=== PATIENT | male | born 1955 | race African-American/Black ===

== ENCOUNTER 2016-06-03 10:49 | Day surgery (SDC) | payer BC ==
[2016-05-31 18:10] VITALS: BMI 25.2
[2016-06-03] VITALS (14 sets, daily range): BP systolic 104–135; BP diastolic 66–77; PULSE 58–80; RESP 12–18; Ht 180.3 cm; Wt 88.0 kg
[~2016-06-03] VITALS: Ht 180.3 cm; Wt 88.0 kg
[~2016-06-03 10:49] MED LIST: CEFAZOLIN 1 GM INJ ONE; ROCURONIUM 50 MG INJ ONE
[2016-06-03] MEDS ORDERED: SOD CHLORIDE 0.9% 1,000 ML IV ONE (11:00)
[2016-06-03] MEDS ORDERED: CEFAZOLIN 1 GM/50 ML (PMX) 50 ML IVPB ONE (11:00)
[2016-06-03] MEDS ORDERED: DOXY50TA5 PO (11:20)
[2016-06-03] MEDS ORDERED: POTA8TAB2 PO (11:29)
[2016-06-03] MEDS ORDERED: POLYMYXIN/BACITRACIN 1L IRRIG ONE (11:50)
[2016-06-03] MEDS ORDERED: BUPIVACAINE 0.25% (MPF) 30 ML INJ ONE (11:50)
[2016-06-03] MEDS ORDERED: PROPOFOL 20 ML ONE (12:11)
[2016-06-03] MEDS ORDERED: METOCLOPRAMIDE 10 MG INJ ONE (12:12)
[2016-06-03] MEDS ORDERED: MIDAZOLAM 1 MG/ML 2 ML INJ ONE (12:12)
[2016-06-03] MEDS ORDERED: ROPIVACAINE 0.5 % 30 ML VIAL ONE (12:28)
[2016-06-03] MEDS ORDERED: FENTAnyl 50 MCG/ML VIAL ONE (12:49)
[2016-06-03] MEDS ORDERED: KETOROLAC 30 MG INJ ONE (13:06)
[2016-06-03] MEDS ORDERED: GLYCOPYRROLATE 0.4 MG INJ ONE (13:06)
[2016-06-03] MEDS ORDERED: NEOSTIGMINE 3 MG/3 ML SYRINGE ONE (13:06)
[2016-06-03] MEDS ORDERED: DIPHENHYDRAMINE 50 MG INJ IV PRN (13:30)
[2016-06-03] MEDS ORDERED: MEPERIDINE 25 MG INJ IV PRN (13:30)
[2016-06-03] MEDS ORDERED: OXYCODONE/ACETAMINOPHEN (5/325) TAB PO PRN ×2 (13:30)
[2016-06-03] MEDS ORDERED: ONDANSETRON 4 MG INJ IV PRN (13:30)
[2016-06-03] MEDS ORDERED: HYDROmorphONE (0.2 MG/ML) 10ML SYG IV PRN ×3 (13:30)
[2016-06-03] MEDS ORDERED: HYDROCODONE/APAP (5/325) TAB PO ONE (13:30)
[2016-06-03] MEDS ORDERED: METOCLOPRAMIDE 10 MG INJ IV PRN (13:30)
--- NOTE | 2016-06-03 14:05 | OPR ---
DATE OF OPERATION: 06/03/2016 INDICATION: This is a 60-year-old male with a right inguinal hernia. He requests surgical repair. Risks, alternatives, benefits, and personnel were discussed with the patient. Patient expressed un derstanding and consents to the operation. PREOPERATIVE DIAGNOSIS: Right inguinal hernia. POSTOPERATIVE DIAGNOSIS: Right inguinal hernia. OPERATION: Open right inguinal hernia repair with large size Ultrapro hernia system mesh. SURGEON: Rafat Sweet MD SPECIMENS: None. COMPLICATIONS: None. ANESTHESIA: General. DESCRIPTION OF PROCEDURE: The patient was taken to the OR and prepped and draped in the usual steri le fashion. Surgical timeout was performed. IV antibiotics were given. Right inguinal oblique inc ision was made with a 10 blade. Dissection cautery was carried down to external oblique fascia whic h was opened with a 15 blade. This incision is extended medial inferiorly and lateral superiorly wi th Metzenbaum scissors. Cord structures were identified and encircled with a Keisha drain. Disk p ortion of UltraPro hernia system mesh is secured in place with a running 0 Prolene from the pubic tu bercle along the shelving edge of the inguinal ligament and superiorly to the internal oblique with interrupted 3-0 Vicryl. Onlay mesh was secured in a similar fashion with a running 0 Prolene from t he pubic tubercle along the shelving edge of the inguinal ligament. Straps are created and reapprox imated with interrupted 0 Prolene to recreate the inguinal ring. Onlay mesh was secured to the inte rnal oblique with interrupted 3-0 Vicryl. External oblique was closed with a running 3-0 Vicryl. S carpa's is closed with interrupted 3-0 Vicryl. Skin was closed using skin ricky. Local anesthesi a was injected. Dry dressings were applied. Dictated By: RAFAT SWEET MD SB/JENNY Conf#: [id number] DID#: [id number]
== END 2016-06-03 15:35 | disposition home or self-care (01) ==
LOC: SDS 10:49
PROVIDERS: ATTEND Surgery
DX: K40.90 Unilateral inguinal hernia, without obstruction or gangrene, not specified as recurrent (principal)
CPT/HCPCS: 49505; C1781; J0690; J1885; J2175; J2250; J2405; J2710; J2765; J2795; J3010; Z7512; Z7610; J1170

== ENCOUNTER 2016-06-29 10:21 | Emergency (ER) | payer BC ==
[~2016-06-29] VITALS: Wt 88.5 kg
[~2016-06-29 10:21] MED LIST changes: -CEFAZOLIN 1 GM INJ ONE; +DOXY50TA5 PO; +POTA8TAB2 PO; -ROCURONIUM 50 MG INJ ONE
[2016-06-29 12:01] LABS: ADD SCAN DIFF NO
[2016-06-29 12:10] LABS: ALBUMIN 3.9 g/dl (3.3-4.9); CHLORIDE 100 mmol/L (97-110); POTASSIUM 3.9 mmol/L (3.5-5.1); SODIUM 141 mmol/L (135-144)
[2016-06-29 12:12] LABS: CREATININE 1.03 mg/dl (0.61-1.24)
[2016-06-29 12:13] LABS: ALANINE AMINOTRANSFERASE 28 IU/L (13-69); ALBUMIN/GLOBULIN RATIO 0.88; ALKALINE PHOSPHATASE 143 IU/L (42-121); ANION GAP 16 (8-16); ASPARTATE AMINO TRANSFERASE 29 IU/L (15-46); BILIRUBIN,INDIRECT 0.7 mg/dl (0-1.1); BILIRUBIN,TOTAL 0.7 mg/dl (0.2-1.3); BLOOD UREA NITROGEN 11 mg/dl (7-20); CARBON DIOXIDE 29 mmol/L (21-31); GLUCOSE 103 mg/dl (70-220); TOTAL PROTEIN 8.3 g/dl (6.1-8.1)
[2016-06-29 12:15] LABS: BASOPHILS % 0.3 % (0.0-2.0); EOSINOPHILS # 0.2 10^3/ul (0.0-0.5); EOSINOPHILS % 2.6 % (0.0-7.0); HEMATOCRIT 37.5 % (42.0-52.0); HEMOGLOBIN 12.1 g/dl (14.0-18.0); LYMPHOCYTES # 1.2 10^3/ul (0.8-2.9); LYMPHOCYTES % 16.7 % (15.0-51.0); MEAN CORPUSCULAR HEMOGLOBIN 27.7 pg (29.0-33.0); MEAN CORPUSCULAR HGB CONC 32.3 g/dl (32.0-37.0); MEAN CORPUSCULAR VOLUME 85.8 fl (82.0-101.0); MEAN PLATELET VOLUME 9.2 fl (7.4-10.4); MONOCYTE # 0.9 10^3/ul (0.3-0.9); MONOCYTES % 12.6 % (0.0-11.0); NEUTROPHIL # 4.9 10^3/ul (1.6-7.5); PLATELET COUNT 173 10^3/UL (140-415); RED BLOOD COUNT 4.37 10^6/ul (4.70-6.10); RED CELL DISTRIBUTION WIDTH 16.2 % (11.5-14.5); WHITE BLOOD COUNT 7.2 10^3/ul (4.8-10.8)
[2016-06-29 12:22] LABS: B-TYPE NATRIURETIC PEPTIDE 57 PG/ML (0-125)
[2016-06-29 12:28] LABS: TROPONIN-I < 0.012 ng/ml (0.00-0.12)
[2016-06-29 12:29] LABS: INR 1.01; PROTIME 13.3 Sec (12.2-14.2)
[2016-06-29 12:30] LABS: PARTIAL THROMBOPLASTIN TIME 28.4 Sec (25.0-35.0)
--- NOTE | 2016-06-29 12:54 | RADRPT ---
PROCEDURE: XR Chest. CLINICAL INDICATION: Chest pain TECHNIQUE: Chest AP portable. COMPARISON: No comparison available. FINDINGS: The mediastinal structures are unremarkable. The heart is normal in size and configuration. The pu lmonary vascularity is normal. The lung carrillo are unremarkable. No consolidation is identified. The pleural spaces are unremarkable. The axial skeleton is unremarkable. IMPRESSION: No active intrathoracic disease. RPTAT: HGDB .Patrick Ferris MD, MD Date Time Electronically viewed and signed by .Patrick Ferris MD, MD on 06/29/2016 12:53 .B/
--- NOTE | 2016-06-29 13:29 | RADRPT ---
PROCEDURE: Ultrasound of the bilateral lower extremity venous system. CLINICAL INDICATION: Bilateral leg pain and swelling, deep venous thrombosis TECHNIQUE: Austin scale with and without compression, color doppler, spectral doppler of the venous system of the bilateral lower extremities was performed. Venous augmentation maneuvers were utilized . COMPARISON: No prior studies are available for comparison. FINDINGS: RIGHT: Common femoral vein: Patent. Femoral vein: Patent. Popliteal vein: Patent. Calf veins: Patent. No soft tissue abnormalities are identified. LEFT: Common femoral vein: Patent. Femoral vein: Patent. Popliteal vein: Patent. Calf veins: Patent. No soft tissue abnormalities are identified. IMPRESSION: No evidence of a deep vein thrombosis within the bilateral lower extremities. RPTAT: AADD .Eliezer Whiteside MD, MD Date Time Electronically viewed and signed by .Eliezer Whiteside MD, on 06/29/2016 13:29 .B/
--- NOTE | 2016-06-29 13:51 | ERD ---
ER Documentation Chief Complaint Date/Time DATE: 06/29/16 Chief Complaint Bilateral leg swelling HPI The patient is a 60-year-old male with a history of venous insufficiency to the lower extremities who presents to the Emergency Department with complaint of worsening lower extremity edema for the past 2-3 days. The patient reports that he has baseline lower extremity edema, however, over the past several days , he has noted increased swelling to both lower extremities. He has tried to elevate the legs, though does not note significant change in symptoms. He denies any redness, warmth, tenderness or pain. Denies numbness, paresthesias or weakness. Denies recent chest pain, palpitations, shortness of breath, weakness, fevers, sweats, chills, nausea or vomiting. Denies weight gain. Denies any swelling to the eyes, testes or other body regions. Denies orthopnea , paroxysmal nocturnal dyspnea, dark urine, hematuria, puffy eyelids, anorexia, jaundice, palmar erythema, ascites. Denies any nonpitting pretibial edema, fatigue, cold intolerance, constipation. Denies recent history of trauma or falls. The patient does note that on 06/03/2016 he underwent right inguinal hernia repair. No other recent surgeries. He denies calf swelling/tenderness. The patient also reports that several years ago he had similar worsening of his baseline edema, and was evaluated at [facility] ED with no acute findings identified. ROS All systems reviewed and are negative except as per history of present illness. Medications Home Meds Reported Medications Potassium Chloride* (Klor-Con*) 8 Meq Tablet.sa, 8 MEQ PO DAILY, TAB 06/03/16 Doxycycline Monohydrate* (Doxycycline Monohydrate*) 50 Mg Tablet, 50 MG PO BID, TAB 06/03/16 Allergies Allergies: Coded Allergies: No Known Allergy (Unverified , 06/29/16) PMhx/Soc History of Surgery: Yes (hernia surgery) Anesthesia Reaction: No Hx Neurological Disorder: No Hx Respiratory Disorders: No Hx Cardiac Disorders: No Hx Psychiatric Problems: No Hx Miscellaneous Medical Probl: No Hx Alcohol Use: Yes (SOCIALLY) Hx Substance Use: Yes (SOCIALLY) Hx Tobacco Use: Yes Smoking Status: Current every day smoker Physical Exam Vitals Vital Signs Date Time Temp Pulse Resp B/P Pulse Ox O2 Delivery O2 Flow Rate FiO2 06/29/16 14:01 98.5 73 16 137/84 99 Room Air 06/29/16 10:26 98.1 92 18 140/72 99 Physical Exam GENERAL: Well-developed, well-nourished, in no acute distress HEENT: Head is normocephalic, atraumatic. No scleral pallor or icterus. Pupils equal, round and reactive to light. Extraocular movements intact. Conjunctiva pink. No periorbital swelling. Moist mucous membranes. No lip or tongue swelling. NECK: Supple. Full range of motion. No JVD. RESPIRATORY: Lungs are clear to auscultation bilaterally. No rales, rhonchi or wheezing. Equal breath sounds. Normal expiratory effort. CARDIOVASCULAR: Regular rate and rhythm. S1 and S2 normal. No S3. No murmurs, rubs, or gallops. GASTROINTESTINAL: Abdomen is soft, nontender, and nondistended. No shifting dullness. EXTREMITIES: No clubbing or cyanosis. 1-2+ edema of the lower extremities, with increased varicosities and hemosiderin deposits. No focal erythema. No warmth. No lymphatic streaking. No dependent rubor. No calf swelling or calf tenderness. Compartments are soft. Normal range of motion. Distal neurovascular status intact. Distal pulses are palpable, 2+ bilaterally. Capillary refill is less than 2 seconds. NEUROLOGIC: The patient is alert, awake, and oriented x 3. No focal neurologic deficits. INTEGUMENT: See Extremities Exam. No urticaria. PSYCHIATRIC: Appropriate; Cooperative. Result Diagram: 06/29/16 1142 06/29/16 1142 Results 24 hrs Laboratory Tests Test 06/29/16 11:42 White Blood Count 7.210^3/ul Red Blood Count 4.3710^6/ul Hemoglobin 12.1g/dl Hematocrit 37.5% Mean Corpuscular Volume 85.8fl Mean Corpuscular Hemoglobin 27.7pg Mean Corpuscular Hemoglobin Concent 32.3g/dl Red Cell Distribution Width 16.2% Platelet Count 53015^3/UL Mean Platelet Volume 9.2fl Neutrophils % 67.0% Lymphocytes % 16.7% Monocytes % 12.6% Eosinophils % 2.6% Basophils % 0.3% Nucleated Red Blood Cells % 0.0/100WBC Neutrophils # 4.910^3/ul Lymphocytes # 1.210^3/ul Monocytes # 0.910^3/ul Eosinophils # 0.210^3/ul Basophils # 0.010^3/ul Nucleated Red Blood Cells # 0.010^3/ul Prothrombin Time 13.3Sec Prothrombin Time Ratio 1.0 INR International Normalized Ratio 1.01 Activated Partial Thromboplast Time 28.4Sec Sodium Level 141mmol/L Potassium Level 3.9mmol/L Chloride Level 100mmol/L Carbon Dioxide Level 29mmol/L Anion Gap 16 Blood Urea Nitrogen 11mg/dl Creatinine 1.03mg/dl Glucose Level 103mg/dl Calcium Level 9.0mg/dl Total Bilirubin 0.7mg/dl Direct Bilirubin 0.00mg/dl Indirect Bilirubin 0.7mg/dl Aspartate Amino Transf (AST/SGOT) 29IU/L Alanine Aminotransferase (ALT/SGPT) 28IU/L Alkaline Phosphatase 143IU/L Troponin I < 0.012ng/ml B-Type Natriuretic Peptide 57PG/ML Total Protein 8.3g/dl Albumin 3.9g/dl Globulin 4.40g/dl Albumin/Globulin Ratio 0.88 Procedures/MDM DIAGNOSTIC TESTS AND INTERPRETATION: PROCEDURE: XR Chest. TECHNIQUE: Chest AP portable. COMPARISON: No comparison available. FINDINGS:The mediastinal structures are unremarkable. The heart is normal in size and configuration. The pulmonary vascularity is normal. The lung carrillo are unremarkable. No consolidation is identified. The pleural spaces are unremarkable. The axial skeleton is unremarkable. IMPRESSION: No active intrathoracic disease. .Patrick Ferris MD, MD Date Time Electronically viewed and signed by .Patrick Ferris MD, MD on 06/29/2016 12:53 PROCEDURE: Ultrasound of the bilateral lower extremity venous system. CLINICAL INDICATION: Bilateral leg pain and swelling, deep venous thrombosis TECHNIQUE: Austin scale with and without compression, color doppler, spectral doppler of the venous system of the bilateral lower extremities was performed. Venous augmentation maneuvers were utilized. COMPARISON: No prior studies are available for comparison. FINDINGS: RIGHT: Common femoral vein: Patent. Femoral vein: Patent. Popliteal vein: Patent. Calf veins: Patent. No soft tissue abnormalities are identified. LEFT: Common femoral vein: Patent. Femoral vein: Patent. Popliteal vein: Patent. Calf veins: Patent. No soft tissue abnormalities are identified. IMPRESSION:No evidence of a deep vein thrombosis within the bilateral lower extremities. .Eliezer Whiteside MD, Date Time Electronically viewed and signed by .Eliezer Whiteside MD, on 06/29/2016 13:29 EKG Reviewed and interpreted by: Dr. Kelly EKG Interpretation: Normal sinus rhythm with sinus arrhythmia. Rate [address]-segment elevations. No LBBB. No ectopy. MEDICAL DECISION MAKING: The patient is a 60-year-old male presenting to the emergency department with complaint of worsening lower extremity swelling for the past several days. Denies any associated pain, redness or restricted range of motion. On physical examination the patient had 1-2+ edema of the lower extremities, with some increased varicosities. Otherwise, no focal erythema or lymphatic streaking. No dependent rubor. Some hemosiderin deposits noted. No calf swelling or tenderness. Compartments are soft. Distal extremities are neurovascularly intact. Differential diagnosis includes, but is not limited to, cellulitis, lymphedema, obesity, venous insufficiency, trauma, hepatic insufficiency/cirrhosis, renal dysfunction/nephrotic syndrome/renal failure, myxedema, cardiac dysfunction/CHF/ cor pulmonale/cardiomyopathy, anasarca, deep vein thrombosis. No evidence of DVT on doppler ultrasound performed. Laboratory analysis revealed no leukocytosis. No erythema, warmth or lymphatic streaking noted to patient's lower extremities. No recent fevers, chills or constitutional symptoms, no evidence of cellulitis. BUN and creatinine are normal, no prerenal azotemia or acute kidney injury. No transaminitis, no elevation of AST /ALT, no clinical findings to suggest cirrhosis. Presentation not consistent with myxedema. BNP within normal limits. Troponin < 0.012. No acute findings on chest x-ray. Do not suspect cardiac etiology. No evidence of acute injury or traumatic process. No clinical findings to suggest septic joint, neurovascular compromise or emergent traumatic injury. At this time the patient is in stable condition with stable vital signs and therefore can be discharged home with strict return precautions for signs of deteriorating or worsening condition. The patient is advised to follow up with his primary care provider within 1-2 days for reevaluation and further management, or return to the ER sooner for any worsening symptoms. I shared my medical decision making and plan with the patient at length and in great detail , and the patient verbally understands and agrees with the plan for further observation and care as an outpatient. At the time of discharge, all questions were answered. Departure Diagnosis: Primary Impression: Lower extremity edema Laterality: bilateral Qualified Code: R60.0 - Bilateral edema of lower extremity Condition: Stable Patient Instructions: Peripheral Edema, Bilateral Additional Instructions: Call your primary care doctor TOMORROW for an appointment during the next 1-2 days.See the doctor sooner or return here if your condition worsens before your appointment time. GABI CABRAL PA-C Jun 29, 2016 13:51
[2016-06-29 14:01] VITALS: BP 137/84; PULSE 73; RESP 16; TEMP 98.5
== END 2016-06-29 14:03 | disposition home or self-care (01) ==
LOC: FTE 10:21
DX: R60.0 Localized edema (principal); F17.210 Nicotine dependence, cigarettes, uncomplicated; I82.403 Acute embolism and thrombosis of unspecified deep veins of lower extremity, bilateral
CPT/HCPCS: 36415; 71010; 80053; 83880; 84484; 85025; 85610; 85730; 93005; 93970; Z7502

== ENCOUNTER 2016-09-12 07:08 | Day surgery (SDC) | payer BC ==
[~2016-09-12] VITALS: Ht 180.3 cm; Wt 84.8 kg
[2016-09-12] MEDS ORDERED: FENTAnyl 50 MCG/ML VIAL ONE (07:34)
[2016-09-12] MEDS ORDERED: PROPOFOL 20 ML ONE (07:35)
[2016-09-12] MEDS ORDERED: LIDOCAINE 2% (SDV) 5 ML INJ ONE (07:37)
[2016-09-12] MEDS ORDERED: TRAMADOL (07:55)
[2016-09-12] MEDS ORDERED: HYDROCODONE (07:55)
[2016-09-12] MEDS ORDERED: PLAVIX (07:55)
[2016-09-12] MEDS ORDERED: ASPIRIN (07:55)
[2016-09-12 07:56] VITALS: Ht 180.3 cm; Wt 84.8 kg
[2016-09-12 08:00] VITALS: BP 160/96; PULSE 74; RESP 18
[2016-09-12 09:10] VITALS: BP 167/99; PULSE 76; RESP 14
--- NOTE | 2016-09-12 09:10 | OPPN ---
Date/Time of Note Date/Time of Note DATE: 09/12/16 TIME: 09:03 Operative Report Free Text/Dictation Indication 60-year-old gentleman undergoing this procedure for screening colonoscopy. Consent. The risk of the procedure related related complication anesthetic risks all explained and informed consent was obtained. Details of the procedure: Patient was brought to the GI lab sedated by SURVEILLANCE INVESTIGATOR. After optimal sedation scope was passed with much ease into the rectum and advanced slowly through sigmoid descending transverse colon all the way into the cecum. Cecum was filled with stool. Scope was then gradually withdrawn while coming out mucosa was thoroughly inspected. Multiple diverticuli seen in the left side of the colon. Patient also had hemorrhoids. No gross lesion was identified. Impression: 1. Diverticulosis mostly on the left side of the colon 2. Negative all the way into the cecum 3. Small hemorrhoids 4. Poor prep. Plan: High-fiber diet The procedure needs to be repeated in 2 years because of poor prep. One copy to my office and one copy to Dr. Warner's office. VANIA MCALLISTER MD Sep 12, 2016 09:10
[2016-10-16] MEDS ORDERED: MELO-110 PO (16:55)
[2016-10-16] MEDS ORDERED: GABA300C16 PO (16:55)
[2016-10-16] MEDS ORDERED: ALEN70TA30 PO (16:56)
[2016-10-22] MEDS ORDERED: LEVO500T72 PO (18:04)
[2016-10-22] MEDS ORDERED: PANT40TA4 PO (18:04)
[2016-10-22] MEDS ORDERED: BENA10TA48 PO (18:04)
[2016-10-22] MEDS ORDERED: CARV6.2579 PO (18:04)
[2016-10-22] MEDS ORDERED: ALBU8.5H3 INH (18:04)
[2016-10-22] MEDS ORDERED: ASPI-664 PO (18:04)
[2016-10-22] MEDS ORDERED: FURO20TA3 PO (18:04)
[2016-10-22] MEDS ORDERED: BISA5TAB6 PO (18:04)
[2016-10-22] MEDS ORDERED: METO25TA7 PO (18:04)
== END 2016-09-12 16:56 | disposition home or self-care (01) ==
LOC: GIL 07:08
PROVIDERS: ATTEND Internal Medicine Gastroenterology
DX: Z12.11 Encounter for screening for malignant neoplasm of colon (principal); K57.90 Diverticulosis of intestine, part unspecified, without perforation or abscess without bleeding; K64.9 Unspecified hemorrhoids; Z87.891 Personal history of nicotine dependence
CPT/HCPCS: 45378; J3010; Z7610

== ENCOUNTER 2016-10-16 15:57 | Inpatient (IN) | END 2016-10-23 21:35 | disposition home or self-care (01) | DRG 291 | DX: I11.0 Hypertensive heart disease with heart failure (principal); J18.9 Pneumonia, unspecified organism; E46 Unspecified protein-calorie malnutrition; I42.9 Cardiomyopathy, unspecified; B19.10 Unspecified viral hepatitis B without hepatic coma; E88.09 Other disorders of plasma-protein metabolism, not elsewhere classified; B02.29 Other postherpetic nervous system involvement; G62.9 Polyneuropathy, unspecified; I50.23 Acute on chronic systolic (congestive) heart failure; I25.10 Atherosclerotic heart disease of native coronary artery without angina pectoris; F15.10 Other stimulant abuse, uncomplicated; F17.200 Nicotine dependence, unspecified, uncomplicated; G47.00 Insomnia, unspecified; M81.0 Age-related osteoporosis without current pathological fracture; R94.5 Abnormal results of liver function studies; R53.1 Weakness; Z68.25 Body mass index [BMI] 25.0-25.9, adult ==

== ENCOUNTER 2016-10-30 13:58 | Inpatient (IN) | payer BC ==
[~2016-10-30] VITALS: Ht 180.3 cm; Wt 82.0 kg
[~2016-10-30 13:58] MED LIST changes: +ALBU8.5H3 INH; +ALEN70TA30 PO; +ASPI-664 PO; +BENA10TA48 PO; +BISA5TAB6 PO; +CARV6.2579 PO; -DOXY50TA5 PO; +FURO20TA3 PO; +GABA300C16 PO; +LEVO500T72 PO; +MELO-110 PO; +METO25TA7 PO; +PANT40TA4 PO; -POTA8TAB2 PO
[2016-10-30 15:43] LABS: BASOPHILS % 0.5 % (0.0-2.0); EOSINOPHILS # 0.3 10^3/ul (0.0-0.5); EOSINOPHILS % 4.6 % (0.0-7.0); HEMATOCRIT 38.5 % (42.0-52.0); HEMOGLOBIN 12.7 g/dl (14.0-18.0); LYMPHOCYTES # 1.5 10^3/ul (0.8-2.9); LYMPHOCYTES % 25.7 % (15.0-51.0); MEAN CORPUSCULAR HEMOGLOBIN 28.9 pg (29.0-33.0); MEAN CORPUSCULAR VOLUME 87.5 fl (82.0-101.0); MEAN PLATELET VOLUME 9.9 fl (7.4-10.4); MONOCYTE # 0.5 10^3/ul (0.3-0.9); MONOCYTES % 9.5 % (0.0-11.0); NEUTROPHILS % 58.5 % (39.0-77.0); PLATELET COUNT 176 10^3/UL (140-415); RED CELL DISTRIBUTION WIDTH 14.8 % (11.5-14.5); WHITE BLOOD COUNT 5.7 10^3/ul (4.8-10.8)
--- NOTE | 2016-10-30 15:46 | RADRPT ---
PROCEDURE: XR Chest. CLINICAL INDICATION: Shortness of breath TECHNIQUE: Single frontal view of the chest was obtained COMPARISON: 10/23/2016 FINDINGS: The heart and mediastinum are within normal limits. The lungs are clear. There is no pleural effusion or pneumothorax. There is a healed left posterior sixth rib fracture. RPTAT: AA IMPRESSION: No acute disease. .Maikel Durham MD, MD Date Time Electronically viewed and signed by .Maikel Durham MD, on 10/30/2016 15:45 .S/
[2016-10-30 15:59] LABS: INR 0.95; PARTIAL THROMBOPLASTIN TIME 24.3 Sec (25.0-35.0); PROTIME 12.7 Sec (12.2-14.2)
[2016-10-30 16:06] LABS: ALANINE AMINOTRANSFERASE 87 IU/L (13-69); ALBUMIN 4.2 g/dl (3.3-4.9); ALBUMIN/GLOBULIN RATIO 0.95; ALKALINE PHOSPHATASE 151 IU/L (42-121); ANION GAP 17 (8-16); ASPARTATE AMINO TRANSFERASE 65 IU/L (15-46); BILIRUBIN,INDIRECT 0.4 mg/dl (0-1.1); BILIRUBIN,TOTAL 0.4 mg/dl (0.2-1.3); BLOOD UREA NITROGEN 21 mg/dl (7-20); CARBON DIOXIDE 26 mmol/L (21-31); CHLORIDE 98 mmol/L (97-110); CREATININE 1.66 mg/dl (0.61-1.24); GLUCOSE 118 mg/dl (70-220); POTASSIUM 4.4 mmol/L (3.5-5.1); SODIUM 137 mmol/L (135-144); TOTAL PROTEIN 8.6 g/dl (6.1-8.1)
[2016-10-30 16:18] LABS: B-TYPE NATRIURETIC PEPTIDE 2430 PG/ML (0-125)
[2016-10-30 16:20] LABS: TROPONIN-I < 0.012 ng/ml (0.00-0.12)
[2016-10-30 18:44] VITALS: TEMP 98
--- NOTE | 2016-10-30 18:45 | ERA ---
ER Documentation Chief Complaint Date/Time DATE: 10/30/16 TIME: 18:41 Chief Complaint sob, weak, hx chf, dc'd last week HPI The patient is a 61-year-old male, presenting to the ER because of acute dyspnea for the last 2 hours, has similar symptom last week when he was hospitalized for acute CHF exacerbation. He denies orthopnea, paroxysmal nocturnal dyspnea, bilateral leg edema. He denies chest pain, abdominal pain, vomiting with dysuria, diarrhea. He does not smoke nor drink Past medical history: History of CHF with low EF of 25% according to the recent echocardiogram, hepatitis B, hypertension Past surgical history: Right inguinal herniorrhaphy ROS All systems reviewed and are negative except as per history of present illness. Medications Home Meds Active Scripts Aspirin* (Aspirin* EC) 81 Mg Tablet.dr, 81 MG PO DAILY for 28 Days, TAB Prov:ERICA CARDOSO MD 10/22/16 Furosemide* (Furosemide*) 20 Mg Tablet, 20 MG PO DAILY, #60 TAB Prov:ERICA CARDOSO MD 10/22/16 Albuterol Sulfate* (Proair HFA*) 8.5 Gm Hfa.aer.ad, 2 PUFF INH Q4, #1 INHALER Prov:ERICA CARDOSO MD 10/22/16 Pantoprazole* (Pantoprazole*) 40 Mg Tablet.dr, 40 MG PO DAILY@06 for 14 Days Prov:ERICA CARDOSO MD 10/22/16 Bisacodyl* (Bisacodyl*) 5 Mg Tablet.dr, 5 MG PO DAILY Y for CONSTIPATION for 28 Days Prov:ERICA CARDOSO MD 10/22/16 Metoprolol Succinate* (Toprol XL*) 25 Mg Tab.sr.24h, 75 MG PO QPM for 28 Days, # 30 Prov:ERICA CARDOSO MD 10/22/16 Carvedilol* (Carvedilol*) 6.25 Mg Tablet, 6.25 MG PO BID for 28 Days, #30 TAB Prov:ERICA CARDOSO MD 10/22/16 Benazepril Hcl* (Benazepril Hcl*) 10 Mg Tablet, 10 MG PO BID for 28 Days, #30 TAB Prov:ERICA CARDOSO MD 10/22/16 Reported Medications Alendronate Sodium* (Fosamax*) 70 Mg Tablet, 70 MG PO Q7D, #4 TAB 10/16/16 Gabapentin* (Gabapentin*) 300 Mg Capsule, 300 MG PO DAILY Y for NEEDED, #60 CAP 10/16/16 Meloxicam* (Mobic*) 15 Mg Tablet, 15 MG PO DAILY, #30 TAB 10/16/16 Discontinued Scripts Levofloxacin* (Levaquin*) 500 Mg Tablet, 500 MG PO DAILY for 7 Days, TAB Prov:ERICA CARDOSO MD 10/22/16 Allergies Allergies: Coded Allergies: No Known Allergy (Unverified , 10/30/16) PMhx/Soc History of Surgery: Yes (Hernia Repair) Anesthesia Reaction: No Hx Neurological Disorder: Yes (neuropathy) Hx Respiratory Disorders: No Hx Cardiac Disorders: No Hx Psychiatric Problems: No Hx Miscellaneous Medical Probl: Yes (Hepatitis A) Hx Alcohol Use: Yes Hx Substance Use: No Hx Tobacco Use: Yes Smoking Status: Former smoker Physical Exam Vitals Vital Signs Date Time Temp Pulse Resp B/P Pulse Ox O2 Delivery O2 Flow Rate FiO2 10/30/16 15: 97.7 68 17 86/59 100 10/30/16 15:05 Nasal Cannula 2 10/30/16 15:05 Nasal Cannula 2.0 10/30/16 14:01 97.7 75 20 94/62 98 Physical Exam Const: No acute distress. Head: Atraumatic. Eyes: Normal Conjunctiva. ENT: Normal External Ears, Nose and Mouth. Neck: Full range of motion. No meningismus. Resp: Bibasilar crackle Cardio: Regular rate and rhythm. Abd: Soft, non distended, normal bowel sounds, non tender. Skin: No petechiae or rashes. Back: No midline or flank tenderness. Ext: Mild bilateral leg edema, no calf tenderness Neur: Awake and alert. No focal deficit Psych: Normal Mood and Affect. Result Diagram: 10/30/16 1535 10/30/16 1535 Results 24 hrs Laboratory Tests Test 10/30/16 15:35 White Blood Count 5.710^3/ul Red Blood Count 4.4010^6/ul Hemoglobin 12.7g/dl Hematocrit 38.5% Mean Corpuscular Volume 87.5fl Mean Corpuscular Hemoglobin 28.9pg Mean Corpuscular Hemoglobin Concent 33.0g/dl Red Cell Distribution Width 14.8% Platelet Count 50586^3/UL Mean Platelet Volume 9.9fl Neutrophils % 58.5% Lymphocytes % 25.7% Monocytes % 9.5% Eosinophils % 4.6% Basophils % 0.5% Nucleated Red Blood Cells % 0.0/100WBC Neutrophils # (Manual) 310^3/ul Lymphocytes # 1.510^3/ul Monocytes # 0.510^3/ul Eosinophils # 0.310^3/ul Basophils # 0.010^3/ul Nucleated Red Blood Cells # 0.010^3/ul Prothrombin Time 12.7Sec Prothrombin Time Ratio 1.0 INR International Normalized Ratio 0.95 Activated Partial Thromboplast Time 24.3Sec Sodium Level 137mmol/L Potassium Level 4.4mmol/L Chloride Level 98mmol/L Carbon Dioxide Level 26mmol/L Anion Gap 17 Blood Urea Nitrogen 21mg/dl Creatinine 1.66mg/dl Glucose Level 118mg/dl Calcium Level 9.0mg/dl Total Bilirubin 0.4mg/dl Direct Bilirubin 0.00mg/dl Indirect Bilirubin 0.4mg/dl Aspartate Amino Transf (AST/SGOT) 65IU/L Alanine Aminotransferase (ALT/SGPT) 87IU/L Alkaline Phosphatase 151IU/L Troponin I < 0.012ng/ml B-Type Natriuretic Peptide 2430PG/ML Total Protein 8.6g/dl Albumin 4.2g/dl Globulin 4.40g/dl Albumin/Globulin Ratio 0.95 Procedures/MDM Urine drug screen is pending [place] [id number] Radiology Main Line: [phone] DIAGNOSTIC IMAGING REPORT Patient: TANNA CASTRO : 1955 Age: 61 Sex: M MR #: [id number] DOS: 10/30/16 1457 Ordering MD: NEHA HURST MD Location: E/R Room/Bed: PROCEDURE: XR Chest. CLINICAL INDICATION: Shortness of breath TECHNIQUE: Single frontal view of the chest was obtained COMPARISON: 10/23/2016 FINDINGS: The heart and mediastinum are within normal limits. The lungs are clear. There is no pleural effusion or pneumothorax. There is a healed left posterior sixth rib fracture. RPTAT: AA IMPRESSION: No acute disease. .Maikel Durham MD, Date Time Electronically viewed and signed by .Maikel Durham MD, on 10/30/2016 15: 45 .S/ CC: NEHA HURST MD EKG: Read by emergency physician Rate/Rhythm: Normal Sinus Rhythm 71 beats/min QRS, ST, T-waves: No ST elevation, no T inversion, anterolateral ST-T abnormality, prolonged QT Impression: Abnormal EKG MEDICAL MAKING DECISION: The patient is a 61-year-old man, presenting with acute CHF exacerbation clinically, acute kidney injury. The differential diagnoses considered include but are not limited to asthma, COPD, pneumonia, pulmonary embolus, pleural effusion, congestive heart failure. Departure Diagnosis: Primary Impression: CHF (congestive heart failure) Additional Impressions: Acute kidney injury Anemia Condition: Stable Comments I discussed the findings with the patient. I discussed the patient with his physician Dr. Cardoso at 5:30 PM who was made aware of the lab, the treatment, the patient condition. The patient is admitted to 24 hour observation telemetry NEHA HURST MD Oct 30, 2016 18:44
[2016-10-30 22:10] VITALS: PULSE 75
[2016-10-30 22:20] VITALS: Ht 180.3 cm; Wt 82.0 kg
[2016-10-30] MEDS ORDERED: [UNRECOGNIZED DRUG - REMARK] XX SCH (23:30)
[2016-10-30] MEDS ORDERED: BISACODYL (EC) 5 MG TAB PO PRN (23:30)
[2016-10-30] MEDS ORDERED: ALENDRONATE 70 MG TAB PO SCH (23:30)
[2016-10-30] MEDS ORDERED: GABAPENTIN 300 MG CAP PO PRN (23:30)
--- NOTE | 2016-10-30 23:32 | QN ---
Documentation Comment [id number] ERICA CARDOSO MD Oct 30, 2016 23:32
[2016-10-31] VITALS (13 sets, daily range): BP systolic 107–149; BP diastolic 59–86; PULSE 64–84; RESP 17–20
[2016-10-31] MEDS: ALBUTEROL 18 GM INHALER INH SCH ×7 (01:00→22:52)
[2016-10-31 02:24] LABS: OPIATES Negative (NEGATIVE)
[2016-10-31 02:35] LABS: BARBITURATES Negative (NEGATIVE); BENZODIAZEPINES Negative (NEGATIVE); CANNABINOIDS Negative (NEGATIVE); COCAINE Negative (NEGATIVE)
[2016-10-31] MEDS: FUROSEMIDE 20 MG INJ IV SCH ×2 (06:06→17:39)
[2016-10-31] MEDS: PANTOPRAZOLE (EC) 40 MG TAB PO SCH (06:06)
[2016-10-31 07:29] LABS: BASOPHILS % 0.4 % (0.0-2.0); EOSINOPHILS # 0.3 10^3/ul (0.0-0.5); EOSINOPHILS % 5.8 % (0.0-7.0); HEMATOCRIT 37.4 % (42.0-52.0); LYMPHOCYTES # 1.7 10^3/ul (0.8-2.9); LYMPHOCYTES % 30.9 % (15.0-51.0); MEAN CORPUSCULAR HGB CONC 32.1 g/dl (32.0-37.0); MEAN CORPUSCULAR VOLUME 87.4 fl (82.0-101.0); MEAN PLATELET VOLUME 9.9 fl (7.4-10.4); MONOCYTE # 0.6 10^3/ul (0.3-0.9); MONOCYTES % 10.5 % (0.0-11.0); PLATELET COUNT 161 10^3/UL (140-415); RED BLOOD COUNT 4.28 10^6/ul (4.70-6.10); RED CELL DISTRIBUTION WIDTH 15.1 % (11.5-14.5); WHITE BLOOD COUNT 5.5 10^3/ul (4.8-10.8)
[2016-10-31 07:58] LABS: ALBUMIN 3.5 g/dl (3.3-4.9); ALBUMIN/GLOBULIN RATIO 0.85; BILIRUBIN,INDIRECT 0.6 mg/dl (0-1.1); BILIRUBIN,TOTAL 0.6 mg/dl (0.2-1.3); CREATININE 1.36 mg/dl (0.61-1.24); POTASSIUM 4.3 mmol/L (3.5-5.1); TOTAL PROTEIN 7.6 g/dl (6.1-8.1)
[2016-10-31] MEDS: ASPIRIN (EC) 81 MG TAB PO SCH (09:09)
[2016-10-31] MEDS: ALENDRONATE 10 MG TAB PO SCH (09:10)
[2016-10-31] MEDS: BENAZEPRIL 10 MG TAB PO SCH ×2 (09:11→20:45)
--- NOTE | 2016-10-31 12:02 | HP ---
DATE OF ADMISSION: 10/30/2016 HISTORY OF PRESENT ILLNESS: Mauro Quick is a 61-year-old male recently discharged from this hospital with a diagnosis of congestive heart failure, hypertensive disease. Patient has neuropathy, a history of hernia repair. Patient has systolic heart failure. He represented with shortness of breath and leg edema and is being admitted for further management. PAST MEDICAL HISTORY: Positive for hypertensive disease, systolic heart failure. Patient has a positive Lexiscan. Patient has dyspepsia. Also and the patient has history of anemia, abnormal LFTs. ALLERGIES: NEGATIVE. FAMILY HISTORY: Noncontributory. SOCIAL HISTORY: Negative. Has drug abuse in the past. MEDICATIONS: Patient is on: 1. Albuterol. 2. Fosamax. 3. Aspirin. 4. Benazepril. 5. Bisacodyl. 6. Coreg. 7. Lasix. 8. Gabapentin. 9. Mobic. 10. Metoprolol. 11. Protonix. REVIEW OF SYSTEMS: HEENT: Unremarkable. RESPIRATORY: Shortness of breath. CVS: S1, S2 normal. GASTROINTESTINAL: Dyspepsia. EXTREMITIES: Neuropathy. Positive for swelling. PHYSICAL EXAMINATION: GENERAL: Patient is awake, alert. Mild shortness of breath. VITAL SIGNS: Pulse 77, blood pressure 111/80. HEENT: Head is atraumatic, normocephalic. Pupils equal, reactive to light. NECK: Supple. No JVD. LUNGS: Wheezes and rales. CVS: S1, S2 normal. ABDOMEN: Soft, nontender. Bowel sounds heard. No palpable mass or hepatosplenomegaly. EXTREMITIES: Positive for swelling. Positive for edema. IRON HANDLER: Patient is awake, alert. No deficits. DATA: _labs. Abnormal LFTs. BNP high IMPRESSION: 1. Patient has pulmonary edema. 2. Lower extremity edema. 3. Positive BNP. 4. Hypertensive disease. 5. Patient has chronic kidney disease. 6. decreased ejection fraction. PLAN: At this point, is to continue cardiac diet. Continue home medications, diuretics and Cardiology consultation will be considered. Dictated By: Juan Schroeder MD /lei/jose cruz /Document#: [id number] ENRIQUE
--- NOTE | 2016-10-31 13:58 | CONS ---
DATE OF ADMISSION: 10/30/2016 DATE OF CONSULTATION: 10/31/2016 REASON FOR CONSULTATION: Shortness of breath, congestive heart failure, cardiomyopathy with severely depressed left ventricular ejection fraction. REQUESTING PHYSICIAN: Jose Cleveland MD HISTORY OF PRESENT ILLNESS: Mr. Quick is a 61-year-old male with a history of hypertension, hernia surgery May 2016, tobacco usage, illicit substance abuse, recently diagnosed cardiomyopathy with severely depressed left ventricular ejection fraction approximately 25 percent status post a stress test revealing EF of 25 percent with stress test from October showing a small reversible defect in the distal anterior wall, mild nonreversible abnormality in the inferior wall. The patient had been recently admitted for shortness of breath and congestive heart failure exacerbation. Discharged to outpatient followup. Now returns with complaints of shortness of breath and lower extremity edema, plus or minus orthopnea and dizziness. Upon arrival, temperature 98.1, blood pressure of 94/62, pulse 75, respiratory rate 20, saturating 98 percent. Patient's labs: White count of 5.7, hemoglobin 12.7, platelet count 176. Sodium 137, potassium 4.4, creatinine 1.66, BUN of 21, AST 65, ALT 87. Troponin negative. BNP of 2430. INR 0.95. Tox screen negative. The patient underwent a chest x-ray revealing no acute cardiopulmonary abnormalities. The patient's electrocardiogram revealed normal sinus rhythm at a rate of 71 with normal axis, intervals and deep anterior T-wave inversions across the precordial leads, V2 through V6. Patient subsequently admitted to the floor and since admitted to the floor continued to have shortness of breath, denies chest pain. PAST MEDICAL HISTORY: As above in HPI. MEDICATION: In hospital: 1. Toprol-XL 75 mg daily. 2. Aspirin 81 mg daily. 3. Benazepril 10 mg p.o. b.i.d. 4. Carvedilol 6.25 mg p.o. b.i.d. 5. Fosamax. 6. Protonix. 7. Lasix 20 mg IV b.i.d. 8. Morphine p.r.n. 9. Albuterol p.r.n. 10. Neurontin 200 mg p.o. p.r.n. ALLERGIES: NO KNOWN DRUG ALLERGIES. SOCIAL HISTORY: Positive tobacco. No ETOH, positive history of illicit drug abuse. FAMILY HISTORY: No history of sudden cardiac or early CAD. REVIEW OF SYSTEMS: As above in HPI. CONSTITUTIONAL: No fevers or chills. RESPIRATORY: Positive for shortness of breath. CARDIOVASCULAR: No current chest pain. GASTROINTESTINAL: No vomiting. GENITOURINARY: No hematuria. MUSCULOSKELETAL: Degenerative joint disease. PSYCHIATRIC: The patient denies depression. NEUROLOGIC: No documented CVA. ENDOCRINE: No documented diabetes mellitus. PHYSICAL EXAMINATION: VITAL SIGNS: Temperature of 97.5, blood pressure most recent 107/73, pulse 75, respiratory rate 20, saturating 100 percent. GENERAL: The patient is alert, awake, complaining of shortness of breath, dyspnea on exertion. NECK: JVP approximately 9 cm. LUNGS: Fair air movement throughout. HEART: Regular rate and rhythm. Normal S1, S2. A 1/6 systolic murmur. Nondisplaced PMI. ABDOMEN: Positive bowel sounds. Soft. EXTREMITIES: No significant edema, 1+ pulses posterior tibial. LABORATORY: As above in HPI with most recent today white count 5.5, hemoglobin 12.0, platelet count 161. Sodium 138, potassium 4.3, creatinine 1.36, down from 1.66. AST 60, ALT 74, ALK phos 133. IMAGING STUDIES: As above in HPI. Imaging studies have been reviewed. ECG as above in HPI. No further reviewed at this time. IMPRESSION: 1. Congestive heart failure exacerbation, systolic, acute on chronic. 2. Cardiomyopathy with severely depressed left ventricular ejection fraction of approximately 25 percent. 3. Abnormal cardiac stress test with small anterior of focal ischemia by recent stress test. 4. Abnormal electrocardiogram with deep T-wave inversions across the anterior precordial leads. 5. Hypertension. 6. Shortness of breath secondary to number 1. 7. Neuropathy lower extremities. 8. Ongoing tobacco use. 9. History of illicit substance abuse. RECOMMENDATIONS: 1. At this time, would maintain patient on telemetry monitoring to follow rhythm and rate control closely. 2. We will complete the patient's workup to rule out for myocardial infarction. The patient's constellation of symptoms are not due to any recent acute coronary syndrome in the setting of deep T-wave inversions across the patient's EKG. We will continue the patient's aspirin at this time for prophylaxis of cardiovascular events. 3. We will discontinue one of the patient's beta jami, as he is taking both Coreg and Toprol-XL. 4. Continue the patient's SARAH inhibitor after load reduction but follow creatinine closely. 5. Continue patient's Lasix diuresis and follow slowly improving creatinine. 6. When patient's creatinine is optimized, we will additionally consider cardiac catheterization on this patient given the significant EKG abnormalities and prior history of abnormal cardiac stress test. 7. Chest fast lipid panel and initiate lipid lowering medications as necessary. Thank you for allowing me to take care of this patient. I will continue to follow very closely with you. hospital course. Dictated By: Lindsey Crowley /lei/cindi /Document#: [id number] CC: Juan Schroeder MD; Jose Cleveland MD;*[facility]*
[2016-10-31] MEDS: morphine 2 MG INJ IV PRN ×2 (16:44→20:45)
[2016-10-31 18:29] LABS: CREATINE KINASE 27 IU/L (23-200)
--- NOTE | 2016-10-31 18:41 | PN ---
Date/Time of Note Date/Time of Note DATE: 10/31/16 TIME: 18:32 Assessment/Plan VTE Prophylaxis VTE Prophylaxis Intervention: LMWH Lines/Catheters IV Catheter Type (from Nrs): Saline Lock Urinary Cath still in place: No Assessment/Plan Chief Complaint/Hosp Course Physical exam Gen: Awake,alert and oriented Neck supple +JVD CVS: LINH Lungs:dec breath sounds at bases ext 1+edema A/P 61 y/o with 1. CHF exacerbation 2 RODERICK on CKD ? 3 Cardiomyopathy with EF 20-25% possible ischemic based on last stress test 4 HTN 5 Neuropathy 6 hx drug abuse 7 Smoker+ - Strict I/O, daily wts, trop - ASA/statin/coreg/SARAH - Monitor UOP with Lasix 20 bid - Possible Angiogram this visit - Appreciate cards consult Problems: Subjective 24 Hr Interval Summary Free Text/Dictation SOB still there Feels that ble edema decreasing Exam/Review of Systems Vital Signs Vitals Vital Signs Date Time Temp Pulse Resp B/P Pulse Ox O2 Delivery O2 Flow Rate FiO2 10/31/16 16:06 69 10/31/16 15:28 98.6 20 108/59 98 10/30/16 20:28 Nasal Cannula 2.0 Intake and Output 10/30/16 10/30/16 10/31/16 15:00 23:00 07:00 Intake Total 250 ml Output Total 380 ml Balance -130 ml Results Result Diagram: 10/31/16 0650 10/31/16 0650 Results 24 hrs Laboratory Tests Test 10/31/16 01:20 10/31/16 06:50 10/31/16 17:55 Urine Opiates Screen Negative Urine Barbiturates Negative Urine Amphetamines Screen Negative Urine Benzodiazepines Screen Negative Urine Cocaine Screen Negative Urine Cannabinoids Negative White Blood Count 5.5 Red Blood Count 4.28 L Hemoglobin 12.0 L Hematocrit 37.4 L Mean Corpuscular Volume 87.4 Mean Corpuscular Hemoglobin 28.0 L Mean Corpuscular Hemoglobin Concent 32.1 Red Cell Distribution Width 15.1 H Platelet Count 161 Mean Platelet Volume 9.9 Neutrophils % 52.0 Lymphocytes % 30.9 Monocytes % 10.5 Eosinophils % 5.8 Basophils % 0.4 Nucleated Red Blood Cells % 0.0 Neutrophils # (Manual) 3 Lymphocytes # 1.7 Monocytes # 0.6 Eosinophils # 0.3 Basophils # 0.0 Nucleated Red Blood Cells # 0.0 Sodium Level 138 Potassium Level 4.3 Chloride Level 101 Carbon Dioxide Level 29 Anion Gap 12 Blood Urea Nitrogen 21 H Creatinine 1.36 H Glucose Level 98 Calcium Level 9.0 Total Bilirubin 0.6 Direct Bilirubin 0.00 Indirect Bilirubin 0.6 Aspartate Amino Transf (AST/SGOT) 60 H Alanine Aminotransferase (ALT/SGPT) 74 H Alkaline Phosphatase 133 H Total Protein 7.6 # Albumin 3.5 Globulin 4.10 H Albumin/Globulin Ratio 0.85 Creatine Kinase 27 Creatine Kinase Index Pending Creatinine Kinase MB (Mass) Pending Troponin I Pending Medications Medications Current Medications Aspirin (Halfprin) 81 mg DAILY PO Last administered on 10/31/16 09:09; Admin Dose 81 MG; Start 10/31/16 at 09:00 Benazepril HCl (Lotensin) 10 mg BID PO Last administered on 10/31/16 09:11; Admin Dose 10 MG; Start 10/31/16 at 09:00 Bisacodyl (Dulcolax) 5 mg DAILY PRN PO CONSTIPATION; Start 10/30/16 at 23:30 Carvedilol (Coreg) 6.25 mg BID PO Last administered on 10/31/16 09:10; Admin Dose 6.25 MG; Start 10/31/16 at 09:00 Pantoprazole (Protonix Tab) 40 mg DAILY@06 PO Last administered on 10/31/16 06 :06; Admin Dose 40 MG; Start 10/31/16 at 06:00 Gabapentin (Neurontin) 300 mg DAILY PRN PO NEEDED Last administered on 09:09; Admin Dose 300 MG; Start 10/30/16 at 23:30 Morphine Sulfate (morphine) 2 mg Q4H PRN IV PAIN Last administered on 16:44; Admin Dose 2 MG; Start 10/31/16 at 00:30 PAULINA SIMPSON MD Oct 31, 2016 18:41
[2016-10-31 18:51] LABS: CK-MB 0.53 ng/ml (0.0-2.4); TROPONIN-I < 0.012 ng/ml (0.00-0.12)
[2016-10-31] MEDS ORDERED: traMADol 50 MG TAB PO PRN (20:30)
[2016-10-31] MEDS ORDERED: METOPROLOL (XL) 25 MG TAB PO SCH (21:00)
[2016-11-01] VITALS (11 sets, daily range): BP systolic 93–119; BP diastolic 55–73; PULSE 60–92; RESP 18–20
[2016-11-01] MEDS: ALBUTEROL 18 GM INHALER INH SCH ×6 (01:05→21:45)
[2016-11-01 01:51] LABS: CREATINE KINASE 23 IU/L (23-200)
[2016-11-01 02:04] LABS: CK-MB 0.41 ng/ml (0.0-2.4); TROPONIN-I < 0.012 ng/ml (0.00-0.12)
[2016-11-01] MEDS: PANTOPRAZOLE (EC) 40 MG TAB PO SCH (05:08)
[2016-11-01] MEDS: FUROSEMIDE 20 MG INJ IV SCH ×2 (05:08→17:09)
[2016-11-01 07:05] LABS: BASOPHILS % 0.6 % (0.0-2.0); EOSINOPHILS # 0.3 10^3/ul (0.0-0.5); EOSINOPHILS % 5.6 % (0.0-7.0); HEMATOCRIT 36.7 % (42.0-52.0); HEMOGLOBIN 12.1 g/dl (14.0-18.0); LYMPHOCYTES # 1.7 10^3/ul (0.8-2.9); LYMPHOCYTES % 34.2 % (15.0-51.0); MEAN CORPUSCULAR HEMOGLOBIN 28.7 pg (29.0-33.0); MEAN PLATELET VOLUME 10.3 fl (7.4-10.4); MONOCYTE # 0.6 10^3/ul (0.3-0.9); MONOCYTES % 12.9 % (0.0-11.0); NEUTROPHILS % 45.9 % (39.0-77.0); PLATELET COUNT 146 10^3/UL (140-415); RED BLOOD COUNT 4.22 10^6/ul (4.70-6.10); RED CELL DISTRIBUTION WIDTH 14.7 % (11.5-14.5); WHITE BLOOD COUNT 4.8 10^3/ul (4.8-10.8)
[2016-11-01 07:19] LABS: CREATINE KINASE 24 IU/L (23-200)
[2016-11-01 07:35] LABS: CHOL/HDL RATIO 2.8 RATIO
[2016-11-01 07:37] LABS: MAGNESIUM 1.9 mg/dl (1.7-2.5); PHOSPHORUS 4.6 mg/dl (2.5-4.9)
[2016-11-01 07:45] LABS: CALCIUM 8.9 mg/dl (8.4-10.2); CREATININE 1.09 mg/dl (0.61-1.24); POTASSIUM 4.1 mmol/L (3.5-5.1)
[2016-11-01 07:47] LABS: CK-MB 0.39 ng/ml (0.0-2.4); TROPONIN-I < 0.012 ng/ml (0.00-0.12)
[2016-11-01] MEDS: ENOXAPARIN 30 MG/0.3 ML SYG SC SCH (09:00)
[2016-11-01] MEDS: ASPIRIN (EC) 81 MG TAB PO SCH (09:07)
[2016-11-01] MEDS: BENAZEPRIL 10 MG TAB PO SCH ×2 (09:08→20:31)
--- NOTE | 2016-11-01 10:45 | CONS ---
Date/Time of Note Date/Time of Note DATE: 11/01/16 TIME: 10:38 Assessment/Plan Assessment/Plan Chief Complaint/Hosp Course IMPRESSION: 1. Congestive heart failure exacerbation, systolic, acute on chronic.-improving volume status. Trop negativ3 x 3 2. Cardiomyopathy with severely depressed left ventricular ejection fraction of approximately 25 percent. 3. Abnormal cardiac stress test with small anterior of focal ischemia by recent stress test. 4. Abnormal electrocardiogram with deep T-wave inversions across the anterior precordial leads. 5. Hypertension. 6. Shortness of breath secondary to number 1-improving with diuresis 7. Neuropathy lower extremities. 8. Ongoing tobacco use. 9. History of illicit substance abuse. Recc: -Tele -serial ecg's -Continue current coreg s/p d/c of second BB toprol -Continue benazepril -Continue asa -when fluid status optimized ok for d/c with outpatient f/u and probable outpatient LHC Problems: Consultation Date/Type/Reason Admit Date/Time Oct 30, 2016 at 17:34 Initial Consult Date 10/31/2016 Type of Consultation: cardiology Reason for Consultation CHF Referring Provider: PAULINA SIMPSON MD Exam/Review of Systems Vital Signs Vitals Vital Signs Date Time Temp Pulse Resp B/P Pulse Ox O2 Delivery O2 Flow Rate FiO2 11/01/16 08:10 60 11/01/16 07:39 97.8 20 114/67 99 10/30/16 20:28 Nasal Cannula 2.0 Intake and Output 10/31/16 10/31/16 11/01/16 15:00 23:00 07:00 Intake Total 800 ml 200 ml Output Total 1400 ml 800 ml Balance -600 ml -600 ml Exam Review of Systems: CONSTITUTIONAL: No fevers, chills. PULMONARY: improving sob CARDIOVASCULAR: No chest pain/palpitations GASTROINTESTINAL: No nausea/vomiting. GENITOURINARY: No hematuria/dysuria. MUSCULOSKELETAL: No myagias/arthalgias. PSYCHIATRIC: The patient denies depression. NEUROLOGIC: No weakness Constitutional: alert Psych: no complaints Head: normocephalic ENMT: mucosa pink and moist Neck: jvd (9 cm water), supple Respiratory: diminished breath sounds (at bases/B) Cardiovascular: regular rate and rhythm Gastrointestinal: non-tender, soft Musculoskeletal: muscle tone (normal) Extremities: edema (none) Neurological: other (No focal deficits) Results Result Diagram: 11/01/1662411/01/16 0625 Results 24 hrs Laboratory Tests Test 10/31/16 17:55 11/01/16 00:48 11/01/16 06:25 Creatine Kinase 27 23 24 Creatine Kinase Index 2.0 1.8 1.6 Creatinine Kinase MB (Mass) 0.53 0.41 0.39 Troponin I < 0.012 < 0.012 < 0.012 White Blood Count 4.8 Red Blood Count 4.22 L Hemoglobin 12.1 L Hematocrit 36.7 L Mean Corpuscular Volume 87.0 Mean Corpuscular Hemoglobin 28.7 L Mean Corpuscular Hemoglobin Concent 33.0 Red Cell Distribution Width 14.7 H Platelet Count 146 Mean Platelet Volume 10.3 Neutrophils % 45.9 Lymphocytes % 34.2 Monocytes % 12.9 H Eosinophils % 5.6 Basophils % 0.6 Nucleated Red Blood Cells % 0.0 Neutrophils # (Manual) 2.2 Lymphocytes # 1.7 Monocytes # 0.6 Eosinophils # 0.3 Basophils # 0.0 Nucleated Red Blood Cells # 0.0 Sodium Level 139 Potassium Level 4.1 Chloride Level 99 Carbon Dioxide Level 27 Anion Gap 17 H Blood Urea Nitrogen 21 H Creatinine 1.09 Glucose Level 99 Calcium Level 8.9 Phosphorus Level 4.6 Magnesium Level 1.9 Triglycerides Level 127 Cholesterol Level 160 LDL Cholesterol, Calculated 78 HDL Cholesterol 57 Cholesterol/HDL Ratio 2.8 Medications Medications Current Medications Aspirin (Halfprin) 81 mg DAILY PO Last administered on 11/01/16 09:07; Admin Dose 81 MG; Start 10/31/16 at 09:00 Benazepril HCl (Lotensin) 10 mg BID PO Last administered on 11/01/16 09:08; Admin Dose 10 MG; Start 10/31/16 at 09:00 Bisacodyl (Dulcolax) 5 mg DAILY PRN PO CONSTIPATION; Start 10/30/16 at 23:30 Carvedilol (Coreg) 6.25 mg BID PO Last administered on 11/01/16 09:07; Admin Dose 6.25 MG; Start 10/31/16 at 09:00 Pantoprazole (Protonix Tab) 40 mg DAILY@06 PO Last administered on 11/01/16 05 :08; Admin Dose 40 MG; Start 10/31/16 at 06:00 Gabapentin (Neurontin) 300 mg DAILY PRN PO NEEDED Last administered on 09:09; Admin Dose 300 MG; Start 10/30/16 at 23:30 Morphine Sulfate (morphine) 2 mg Q4H PRN IV PAIN Last administered on 20:45; Admin Dose 2 MG; Start 10/31/16 at 00:30 Enoxaparin Sodium (Lovenox) 30 mg DAILY SC ; Start 11/01/16 at 09:00 Tramadol HCl (Ultram) 50 mg Q4 PRN PO PAIN LEVEL 4-7; Start 10/31/16 at 20:30 MAYKEL SENA Nov 01, 2016 10:45
--- NOTE | 2016-11-01 13:07 | PN ---
Date/Time of Note Date/Time of Note DATE: 11/01/16 TIME: 13:04 Assessment/Plan VTE Prophylaxis VTE Prophylaxis Intervention: SCD's Lines/Catheters [facility] Saline Lock Urinary Cath still in place: No Assessment/Plan Chief Complaint/Hosp Course 1. Congestive heart failure exacerbation, 2. Anemia 3. Abnormal cardiac stress test 4. Abnormal electrocardiogram with deep T-wave inversions across the anterior precordial leads. 5. Hypertension, controlled. 6. Shortness of breath 7. Neuropathy lower extremities. 8. Nicotine dependence 9. History of illicit substance abuse. 10. edema lower extremities Problems: Assessment/Plan 1. continue telemetry 2. Continue [id number] regime 3. Possible angiogram. Exam/Review of Systems Vital Signs Vitals Vital Signs Date Time Temp Pulse Resp B/P Pulse Ox O2 Delivery O2 Flow Rate FiO2 11/01/16 12:03 65 11/01/16 11:28 97.7 20 93/55 99 10/30/16 20:28 Nasal Cannula 2.0 Intake and Output 10/31/16 10/31/16 11/01/16 15:00 23:00 07:00 Intake Total 800 ml 200 ml Output Total 1400 ml 800 ml Balance -600 ml -600 ml Results Result Diagram: 11/01/1625 11/01/16 0625 Results 24 hrs Laboratory Tests Test 10/31/16 17:55 11/01/16 00:48 11/01/16 06:25 Creatine Kinase 27 23 24 Creatine Kinase Index 2.0 1.8 1.6 Creatinine Kinase MB (Mass) 0.53 0.41 0.39 Troponin I < 0.012 < 0.012 < 0.012 White Blood Count 4.8 Red Blood Count 4.22 L Hemoglobin 12.1 L Hematocrit 36.7 L Mean Corpuscular Volume 87.0 Mean Corpuscular Hemoglobin 28.7 L Mean Corpuscular Hemoglobin Concent 33.0 Red Cell Distribution Width 14.7 H Platelet Count 146 Mean Platelet Volume 10.3 Neutrophils % 45.9 Lymphocytes % 34.2 Monocytes % 12.9 H Eosinophils % 5.6 Basophils % 0.6 Nucleated Red Blood Cells % 0.0 Neutrophils # (Manual) 2.2 Lymphocytes # 1.7 Monocytes # 0.6 Eosinophils # 0.3 Basophils # 0.0 Nucleated Red Blood Cells # 0.0 Sodium Level 139 Potassium Level 4.1 Chloride Level 99 Carbon Dioxide Level 27 Anion Gap 17 H Blood Urea Nitrogen 21 H Creatinine 1.09 Glucose Level 99 Calcium Level 8.9 Phosphorus Level 4.6 Magnesium Level 1.9 Triglycerides Level 127 Cholesterol Level 160 LDL Cholesterol, Calculated 78 HDL Cholesterol 57 Cholesterol/HDL Ratio 2.8 Medications Medications Current Medications Aspirin (Halfprin) 81 mg DAILY PO Last administered on 11/01/16 09:07; Admin Dose 81 MG; Start 10/31/16 at 09:00 Benazepril HCl (Lotensin) 10 mg BID PO Last administered on 11/01/16 09:08; Admin Dose 10 MG; Start 10/31/16 at 09:00 Bisacodyl (Dulcolax) 5 mg DAILY PRN PO CONSTIPATION; Start 10/30/16 at 23:30 Carvedilol (Coreg) 6.25 mg BID PO Last administered on 11/01/16 09:07; Admin Dose 6.25 MG; Start 10/31/16 at 09:00 Pantoprazole (Protonix Tab) 40 mg DAILY@06 PO Last administered on 11/01/16 05 :08; Admin Dose 40 MG; Start 10/31/16 at 06:00 Gabapentin (Neurontin) 300 mg DAILY PRN PO NEEDED Last administered on 09:09; Admin Dose 300 MG; Start 10/30/16 at 23:30 Morphine Sulfate (morphine) 2 mg Q4H PRN IV PAIN Last administered on 20:45; Admin Dose 2 MG; Start 10/31/16 at 00:30 Enoxaparin Sodium (Lovenox) 30 mg DAILY SC ; Start 11/01/16 at 09:00 Tramadol HCl (Ultram) 50 mg Q4 PRN PO PAIN LEVEL 4-7; Start 10/31/16 at 20:30 NAS SILVA Nov 01, 2016 13:06
--- NOTE | 2016-11-01 17:12 | RADRPT ---
Vent Rate: 64 bpm RR Interval: 0 msec LA Interval: 154 msec QRS Duration: 96 msec QT Interval: 452 msec QTC Interval: 466 msec P-R-T [place]: 49 - 62 - 166 degrees Normal sinus rhythm T wave abnormality, consider inferior ischemia T wave abnormality, consider anterolateral ischemia Prolonged QT Abnormal ECG Electronically Signed By: Neel Osorio [id number]
[2016-11-01] MEDS: ALENDRONATE 10 MG TAB PO SCH (17:30)
[2016-11-01] MEDS: morphine 2 MG INJ IV PRN (20:30)
[2016-11-02] VITALS (10 sets, daily range): BP systolic 103–129; BP diastolic 56–76; PULSE 63–90; RESP 16–19
[2016-11-02] MEDS: ALBUTEROL 18 GM INHALER INH SCH ×6 (01:00→21:07)
[2016-11-02] MEDS: FUROSEMIDE 20 MG INJ IV SCH ×2 (06:00→17:27)
[2016-11-02] MEDS: PANTOPRAZOLE (EC) 40 MG TAB PO SCH (06:00)
[2016-11-02 06:34] LABS: BASOPHILS % 0.4 % (0.0-2.0); EOSINOPHILS # 0.3 10^3/ul (0.0-0.5); EOSINOPHILS % 6.8 % (0.0-7.0); HEMATOCRIT 36.1 % (42.0-52.0); HEMOGLOBIN 11.8 g/dl (14.0-18.0); LYMPHOCYTES # 1.7 10^3/ul (0.8-2.9); LYMPHOCYTES % 33.9 % (15.0-51.0); MEAN CORPUSCULAR HEMOGLOBIN 28.4 pg (29.0-33.0); MEAN CORPUSCULAR HGB CONC 32.7 g/dl (32.0-37.0); MEAN PLATELET VOLUME 10.9 fl (7.4-10.4); MONOCYTE # 0.6 10^3/ul (0.3-0.9); NEUTROPHILS % 46.5 % (39.0-77.0); PLATELET COUNT 134 10^3/UL (140-415); RED BLOOD COUNT 4.15 10^6/ul (4.70-6.10); RED CELL DISTRIBUTION WIDTH 14.8 % (11.5-14.5)
[2016-11-02 07:11] LABS: CALCIUM 8.8 mg/dl (8.4-10.2); CREATININE 1.22 mg/dl (0.61-1.24); POTASSIUM 4.3 mmol/L (3.5-5.1)
[2016-11-02] MEDS: ENOXAPARIN 30 MG/0.3 ML SYG SC SCH (08:06)
[2016-11-02] MEDS: BENAZEPRIL 10 MG TAB PO SCH ×2 (08:07→21:08)
[2016-11-02] MEDS: ALENDRONATE 10 MG TAB PO SCH (08:07)
[2016-11-02] MEDS: ASPIRIN (EC) 81 MG TAB PO SCH (08:08)
[2016-11-02] MEDS ORDERED: DILTIAZEM 25 MG INJ IV PRN (11:30)
--- NOTE | 2016-11-02 13:47 | PN ---
Date/Time of Note Date/Time of Note DATE: 11/02/16 TIME: 13:46 Assessment/Plan VTE Prophylaxis VTE Prophylaxis Intervention: ambulation Lines/Catheters IV Catheter Type (from [facility]): Peripheral IV Urinary Cath still in place: No Assessment/Plan Chief Complaint/Hosp Course 1. Congestive heart failure exacerbation, 2. Anemia 3. Abnormal cardiac stress test 4. Abnormal electrocardiogram with deep T-wave inversions across the anterior precordial leads. 5. Hypertension, controlled. 6. Shortness of breath 7. Neuropathy lower extremities. 8. Nicotine dependence 9. History of illicit substance abuse. 10. edema lower extremities, resolving Problems: Assessment/Plan 1. expect cardiac cath on Friday 2. continue current regime 3. Add Gabapentin 100 to control tingling lower extremities Subjective 24 Hr Interval Summary Constitutional: improved, no complaints Exam/Review of Systems Vital Signs Vitals Vital Signs Date Time Temp Pulse Resp B/P Pulse Ox O2 Delivery O2 Flow Rate FiO2 11/02/16 12:04 74 11/02/16 11:10 98.2 16 118/68 97 11/02/16 09:05 Nasal Cannula 10/30/16 20:28 2.0 Intake and Output 11/01/16 11/01/16 11/02/16 15:00 23:00 07:00 Intake Total 400 ml Output Total 1000 ml Balance -600 ml Exam Constitutional: alert, oriented Neck: supple Respiratory: clear to auscultation Cardiovascular: regular rate and rhythm Gastrointestinal: soft Results Result Diagram: 11/02/16 0532 11/02/16 0532 Results 24 hrs Laboratory Tests Test 11/02/16 05:32 White Blood Count 5.0 Red Blood Count 4.15 L Hemoglobin 11.8 L Hematocrit 36.1 L Mean Corpuscular Volume 87.0 Mean Corpuscular Hemoglobin 28.4 L Mean Corpuscular Hemoglobin Concent 32.7 Red Cell Distribution Width 14.8 H Platelet Count 134 L Mean Platelet Volume 10.9 H Neutrophils % 46.5 Lymphocytes % 33.9 Monocytes % 12.0 H Eosinophils % 6.8 Basophils % 0.4 Nucleated Red Blood Cells % 0.0 Neutrophils # (Manual) 2.3 Lymphocytes # 1.7 Monocytes # 0.6 Eosinophils # 0.3 Basophils # 0.0 Nucleated Red Blood Cells # 0.0 Sodium Level 140 Potassium Level 4.3 Chloride Level 99 Carbon Dioxide Level 31 Anion Gap 14 Blood Urea Nitrogen 27 H Creatinine 1.22 Glucose Level 86 Calcium Level 8.8 Medications Medications Current Medications Aspirin (Halfprin) 81 mg DAILY PO Last administered on 11/02/16 08:08; Admin Dose 81 MG; Start 10/31/16 at 09:00 Benazepril HCl (Lotensin) 10 mg BID PO Last administered on 11/02/16 08:07; Admin Dose 10 MG; Start 10/31/16 at 09:00 Bisacodyl (Dulcolax) 5 mg DAILY PRN PO CONSTIPATION; Start 10/30/16 at 23:30 Carvedilol (Coreg) 6.25 mg BID PO Last administered on 11/02/16 08:08; Admin Dose 6.25 MG; Start 10/31/16 at 09:00 Pantoprazole (Protonix Tab) 40 mg DAILY@06 PO Last administered on 11/02/16 06 :00; Admin Dose 40 MG; Start 10/31/16 at 06:00 Gabapentin (Neurontin) 300 mg DAILY PRN PO NEEDED Last administered on 09:09; Admin Dose 300 MG; Start 10/30/16 at 23:30 Morphine Sulfate (morphine) 2 mg Q4H PRN IV PAIN Last administered on 20:30; Admin Dose 2 MG; Start 10/31/16 at 00:30 Enoxaparin Sodium (Lovenox) 30 mg DAILY SC ; Start 11/01/16 at 09:00 Tramadol HCl (Ultram) 50 mg Q4 PRN PO PAIN LEVEL 4-7; Start 10/31/16 at 20:30 NAS SILVA Nov 02, 2016 13:47
[2016-11-02] MEDS: GABAPENTIN 100 MG CAP PO SCH ×2 (14:41→21:08)
[2016-11-02] MEDS: morphine 2 MG INJ IV PRN (21:08)
[2016-11-03] VITALS (13 sets, daily range): BP systolic 104–123; BP diastolic 58–83; PULSE 60–100; RESP 17–20
[2016-11-03] MEDS: ALBUTEROL 18 GM INHALER INH SCH ×5 (01:00→21:38)
[2016-11-03] MEDS: ALENDRONATE 10 MG TAB PO SCH (07:03)
[2016-11-03] MEDS: FUROSEMIDE 20 MG INJ IV SCH ×2 (07:03→18:37)
[2016-11-03] MEDS: PANTOPRAZOLE (EC) 40 MG TAB PO SCH (07:03)
[2016-11-03 07:41] LABS: CALCIUM 8.8 mg/dl (8.4-10.2); CREATININE 1.13 mg/dl (0.61-1.24); POTASSIUM 4.2 mmol/L (3.5-5.1)
[2016-11-03] MEDS: ENOXAPARIN 30 MG/0.3 ML SYG SC SCH (09:00)
[2016-11-03] MEDS: GABAPENTIN 100 MG CAP PO SCH ×2 (09:43→21:33)
[2016-11-03] MEDS: BENAZEPRIL 10 MG TAB PO SCH ×2 (09:44→21:31)
[2016-11-03] MEDS: ASPIRIN (EC) 81 MG TAB PO SCH (09:46)
--- NOTE | 2016-11-03 16:10 | PN ---
Date/Time of Note Date/Time of Note DATE: 11/03/16 TIME: 16:08 Assessment/Plan VTE Prophylaxis VTE Prophylaxis Intervention: other Lines/Catheters [facility] Saline Lock Urinary Cath still in place: No Assessment/Plan Chief Complaint/Hosp Course CHF CKD HEP B UREMIA PLAN HD AM CK LABS EDEMA BETTER SYS HEART FAILURE Problems: Subjective 24 Hr Interval Summary Cardiovascular: no complaints Gastrointestinal: no complaints Genitourinary: no complaints Exam/Review of Systems Vital Signs Vitals Vital Signs Date Time Temp Pulse Resp B/P Pulse Ox O2 Delivery O2 Flow Rate FiO2 11/03/16 15:15 98.5 78 17 117/78 95 11/02/16 20:00 Nasal Cannula 2.0 Intake and Output 11/02/16 11/02/16 11/03/16 15:00 23:00 07:00 Intake Total 1420 ml Output Total 1100 ml Balance 320 ml Exam Respiratory: clear to auscultation Cardiovascular: regular rate and rhythm Gastrointestinal: soft Musculoskeletal: nl extremities to inspection Extremities: normal pulses Results Result Diagram: 11/02/16 0532 11/03/16 0555 Results 24 hrs Laboratory Tests Test 11/03/16 05:55 Sodium Level 140 Potassium Level 4.2 Chloride Level 99 Carbon Dioxide Level 28 Anion Gap 17 H Blood Urea Nitrogen 30 H Creatinine 1.13 Glucose Level 90 Calcium Level 8.8 Medications Medications Current Medications Aspirin (Halfprin) 81 mg DAILY PO Last administered on 11/03/16 09:46; Admin Dose 81 MG; Start 10/31/16 at 09:00 Benazepril HCl (Lotensin) 10 mg BID PO Last administered on 11/03/16 09:44; Admin Dose 10 MG; Start 10/31/16 at 09:00 Bisacodyl (Dulcolax) 5 mg DAILY PRN PO CONSTIPATION; Start 10/30/16 at 23:30 Carvedilol (Coreg) 6.25 mg BID PO Last administered on 11/03/16 09:46; Admin Dose 6.25 MG; Start 10/31/16 at 09:00 Pantoprazole (Protonix Tab) 40 mg DAILY@06 PO Last administered on 11/03/16 07 :03; Admin Dose 40 MG; Start 10/31/16 at 06:00 Gabapentin (Neurontin) 300 mg DAILY PRN PO NEEDED Last administered on 09:09; Admin Dose 300 MG; Start 10/30/16 at 23:30 Morphine Sulfate (morphine) 2 mg Q4H PRN IV PAIN Last administered on 21:08; Admin Dose 2 MG; Start 10/31/16 at 00:30 Enoxaparin Sodium (Lovenox) 30 mg DAILY SC ; Start 11/01/16 at 09:00 Tramadol HCl (Ultram) 50 mg Q4 PRN PO PAIN LEVEL 4-7; Start 10/31/16 at 20:30 Gabapentin (Neurontin) 100 mg BID PO Last administered on 11/03/16 09:43; Admin Dose 100 MG; Start 11/02/16 at 14:00 ERICA CARDOSO MD Nov 03, 2016 16:10
[2016-11-03] MEDS: morphine 2 MG INJ IV PRN (18:49)
[2016-11-04] VITALS (11 sets, daily range): BP systolic 90–118; BP diastolic 54–71; PULSE 60–85; RESP 18–19
[2016-11-04] MEDS: morphine 2 MG INJ IV PRN ×2 (01:50→10:27)
[2016-11-04] MEDS: ALBUTEROL 18 GM INHALER INH SCH ×6 (01:51→22:09)
[2016-11-04] MEDS: PANTOPRAZOLE (EC) 40 MG TAB PO SCH (05:45)
[2016-11-04] MEDS: FUROSEMIDE 20 MG INJ IV SCH (05:47)
[2016-11-04] MEDS: ENOXAPARIN 30 MG/0.3 ML SYG SC SCH (08:08)
[2016-11-04] MEDS: BENAZEPRIL 10 MG TAB PO SCH ×2 (10:16→22:14)
[2016-11-04] MEDS: GABAPENTIN 100 MG CAP PO SCH ×2 (10:18→22:14)
[2016-11-04] MEDS: ASPIRIN (EC) 81 MG TAB PO SCH (10:18)
[2016-11-04] MEDS: ALENDRONATE 10 MG TAB PO SCH (10:18)
--- NOTE | 2016-11-04 10:28 | CONS ---
Date/Time of Note Date/Time of Note DATE: 11/04/16 TIME: 10:23 Assessment/Plan Assessment/Plan Chief Complaint/Hosp Course IMPRESSION: 1. Congestive heart failure exacerbation, systolic, acute on chronic.-improving volume status. Trop negative3 x 3 2. Cardiomyopathy with severely depressed left ventricular ejection fraction of approximately 25 percent. 3. Abnormal cardiac stress test with small anterior of focal ischemia by recent stress test. 4. Abnormal electrocardiogram with deep T-wave inversions across the anterior precordial leads. 5. Hypertension. 6. Shortness of breath secondary to number 1-improved 7. Neuropathy lower extremities. 8. Ongoing tobacco use. 9. History of illicit substance abuse. Recc: -Tele -serial ecg's -Continue current coreg/ACEI -Continue benazepril -Continue lasix and change to PO -ambulation -If remains stable frfo m respiratory standpoint then of for d/c with outpatient f/u and probable outpatient LHC and patient has been given info for follow-up Problems: Consultation Date/Type/Reason Admit Date/Time Nov 01, 2016 at 10:55 Initial Consult Date 10/31/2016 Type of Consultation: cardiology Reason for Consultation cardiomyopathy Referring Provider: PAULINA SIMPSON MD Exam/Review of Systems Vital Signs Vitals Vital Signs Date Time Temp Pulse Resp B/P Pulse Ox O2 Delivery O2 Flow Rate FiO2 11/04/16 08:01 61 11/04/16 07:28 98.0 18 100/57 96 11/02/16 20:00 Nasal Cannula 2.0 Intake and Output 11/03/16 11/03/16 11/04/16 15:00 23:00 07:00 Intake Total 600 ml Balance 600 ml Exam Review of Systems: CONSTITUTIONAL: No fevers, chills. PULMONARY: No sob CARDIOVASCULAR: No chest pain/palpitations GASTROINTESTINAL: No nausea/vomiting. GENITOURINARY: No hematuria/dysuria. MUSCULOSKELETAL: No myagias/arthalgias. PSYCHIATRIC: The patient denies depression. NEUROLOGIC: No weakness Constitutional: alert, oriented Psych: no complaints Head: normocephalic ENMT: mucosa pink and moist Neck: jvd (9 cm water), supple Respiratory: clear to auscultation Cardiovascular: regular rate and rhythm Gastrointestinal: non-tender, soft Musculoskeletal: muscle tone (normal) Extremities: edema (none) Neurological: other (No focal deficits) Results Result Diagram: 11/02/16 0532 11/03/16 0555 Medications Medications Current Medications Aspirin (Halfprin) 81 mg DAILY PO Last administered on 11/04/16 10:18; Admin Dose 81 MG; Start 10/31/16 at 09:00 Benazepril HCl (Lotensin) 10 mg BID PO Last administered on 11/04/16 10:16; Admin Dose 10 MG; Start 10/31/16 at 09:00 Bisacodyl (Dulcolax) 5 mg DAILY PRN PO CONSTIPATION; Start 10/30/16 at 23:30 Carvedilol (Coreg) 6.25 mg BID PO Last administered on 11/04/16 10:17; Admin Dose 6.25 MG; Start 10/31/16 at 09:00 Pantoprazole (Protonix Tab) 40 mg DAILY@06 PO Last administered on 11/04/16 05 :45; Admin Dose 40 MG; Start 10/31/16 at 06:00 Gabapentin (Neurontin) 300 mg DAILY PRN PO NEEDED Last administered on 09:09; Admin Dose 300 MG; Start 10/30/16 at 23:30 Morphine Sulfate (morphine) 2 mg Q4H PRN IV PAIN Last administered on 01:50; Admin Dose 2 MG; Start 10/31/16 at 00:30 Enoxaparin Sodium (Lovenox) 30 mg DAILY SC ; Start 11/01/16 at 09:00 Tramadol HCl (Ultram) 50 mg Q4 PRN PO PAIN LEVEL 4-7; Start 10/31/16 at 20:30 Gabapentin (Neurontin) 100 mg BID PO Last administered on 11/04/16 10:18; Admin Dose 100 MG; Start 11/02/16 at 14:00 MAYKEL SENA Nov 04, 2016 10:28
--- NOTE | 2016-11-04 14:03 | PN ---
Date/Time of Note Date/Time of Note DATE: 11/04/16 TIME: 13:59 Assessment/Plan VTE Prophylaxis VTE Prophylaxis Intervention: LMWH Lines/Catheters IV Catheter Type (from Nrsg): Peripheral IV Urinary Cath still in place: No Assessment/Plan Chief Complaint/Hosp Course Physical exam Gen: Awake,alert and oriented Neck supple +JVD CVS: LINH Lungs:dec breath sounds at bases ext 1+edema A/P 61 y/o with 1. CHF exacerbation 2 RODERICK resolved 3 Cardiomyopathy with EF 20-25% possible ischemic based on last stress test 4 HTN 5 Neuropathy 6 hx drug abuse 7 Smoker+ Reds - c/w ASA/statin/coreg/SARAH - change Lasix to 20 bid po - Angiogram likely on Friday> spoke to Dr Avina - Appreciate cards consult - Vit b12, folic acid, RPR, HIV - GI/dvt prophylaxsis Problems: Subjective 24 Hr Interval Summary Free Text/Dictation Pt feels tingling and numbness in ext sob improving Exam/Review of Systems Vital Signs Vitals Vital Signs Date Time Temp Pulse Resp B/P Pulse Ox O2 Delivery O2 Flow Rate FiO2 11/04/16 12:01 66 11/04/16 11:47 98.2 19 90/55 97 11/02/16 20:00 Nasal Cannula 2.0 Intake and Output 11/03/16 11/03/16 11/04/16 15:00 23:00 07:00 Intake Total 600 ml Balance 600 ml Results Result Diagram: 11/02/16 0532 11/03/16 0555 Medications Medications Current Medications Aspirin (Halfprin) 81 mg DAILY PO Last administered on 11/04/16 10:18; Admin Dose 81 MG; Start 10/31/16 at 09:00 Benazepril HCl (Lotensin) 10 mg BID PO Last administered on 11/04/16 10:16; Admin Dose 10 MG; Start 10/31/16 at 09:00 Bisacodyl (Dulcolax) 5 mg DAILY PRN PO CONSTIPATION; Start 10/30/16 at 23:30 Carvedilol (Coreg) 6.25 mg BID PO Last administered on 11/04/16 10:17; Admin Dose 6.25 MG; Start 10/31/16 at 09:00 Pantoprazole (Protonix Tab) 40 mg DAILY@06 PO Last administered on 11/04/16 05 :45; Admin Dose 40 MG; Start 10/31/16 at 06:00 Gabapentin (Neurontin) 300 mg DAILY PRN PO NEEDED Last administered on 09:09; Admin Dose 300 MG; Start 10/30/16 at 23:30 Morphine Sulfate (morphine) 2 mg Q4H PRN IV PAIN Last administered on 10:27; Admin Dose 2 MG; Start 10/31/16 at 00:30 Enoxaparin Sodium (Lovenox) 30 mg DAILY SC ; Start 11/01/16 at 09:00 Tramadol HCl (Ultram) 50 mg Q4 PRN PO PAIN LEVEL 4-7; Start 10/31/16 at 20:30 Gabapentin (Neurontin) 100 mg BID PO Last administered on 11/04/16 10:18; Admin Dose 100 MG; Start 11/02/16 at 14:00 PAULINA SIMPSON MD Nov 04, 2016 14:03
[2016-11-04 16:57] LABS: FOLATE 11.5 ng/ml (2.8-20.0)
[2016-11-04 17:15] LABS: RAPID PLASMA REAGIN REACTIVE (NR)
[2016-11-04] MEDS: FUROSEMIDE 20 MG TAB PO SCH (17:21)
[2016-11-05] VITALS (13 sets, daily range): BP systolic 91–146; BP diastolic 54–76; PULSE 54–75; RESP 17–20
[2016-11-05] MEDS: ALBUTEROL 18 GM INHALER INH SCH ×6 (01:00→22:33)
[2016-11-05] MEDS: PANTOPRAZOLE (EC) 40 MG TAB PO SCH (06:02)
[2016-11-05] MEDS: FUROSEMIDE 20 MG TAB PO SCH ×2 (06:02→17:29)
[2016-11-05] MEDS: BENAZEPRIL 10 MG TAB PO SCH ×3 (07:38→22:42)
[2016-11-05] MEDS: ENOXAPARIN 30 MG/0.3 ML SYG SC SCH (07:38)
[2016-11-05 07:56] LABS: BASOPHILS % 0.4 % (0.0-2.0); EOSINOPHILS # 0.3 10^3/ul (0.0-0.5); EOSINOPHILS % 5.5 % (0.0-7.0); HEMATOCRIT 35.4 % (42.0-52.0); HEMOGLOBIN 11.6 g/dl (14.0-18.0); LYMPHOCYTES # 1.7 10^3/ul (0.8-2.9); LYMPHOCYTES % 38.3 % (15.0-51.0); MEAN CORPUSCULAR HEMOGLOBIN 28.6 pg (29.0-33.0); MEAN CORPUSCULAR HGB CONC 32.8 g/dl (32.0-37.0); MEAN CORPUSCULAR VOLUME 87.4 fl (82.0-101.0); MONOCYTE # 0.6 10^3/ul (0.3-0.9); MONOCYTES % 13.5 % (0.0-11.0); NEUTROPHILS % 41.6 % (39.0-77.0); PLATELET COUNT 106 10^3/UL (140-415); RED BLOOD COUNT 4.05 10^6/ul (4.70-6.10); RED CELL DISTRIBUTION WIDTH 14.7 % (11.5-14.5); WHITE BLOOD COUNT 4.5 10^3/ul (4.8-10.8)
[2016-11-05] MEDS: GABAPENTIN 100 MG CAP PO SCH ×2 (08:06→22:36)
[2016-11-05] MEDS: ALENDRONATE 10 MG TAB PO SCH (08:06)
[2016-11-05] MEDS: ASPIRIN (EC) 81 MG TAB PO SCH (08:06)
[2016-11-05 08:14] LABS: CALCIUM 8.8 mg/dl (8.4-10.2); CREATININE 1.08 mg/dl (0.61-1.24); POTASSIUM 4.6 mmol/L (3.5-5.1)
--- NOTE | 2016-11-05 09:12 | CONS ---
Date/Time of Note Date/Time of Note DATE: 11/05/16 TIME: 09:11 Assessment/Plan Assessment/Plan Additional Assessment/Plan Pt comfortable - does not want to be seen by me - per Dr. Avina note, no acute ischemia. Consultation Date/Type/Reason Admit Date/Time Nov 01, 2016 at 10:55 Initial Consult Date Type of Consultation: cardiology Referring Provider: PAULINA SIMPSON MD Exam/Review of Systems Vital Signs Vitals Vital Signs Date Time Temp Pulse Resp B/P Pulse Ox O2 Delivery O2 Flow Rate FiO2 11/05/16 08:53 62 11/05/16 07:05 97.9 18 91/54 97 11/02/16 20:00 Nasal Cannula 2.0 Intake and Output 11/04/16 11/04/16 11/05/16 15:00 23:00 07:00 Intake Total 720 ml 600 ml Output Total 2000 ml 800 ml Balance -1280 ml -200 ml Results Result Diagram: 11/05/16 0554 11/05/16 0600 Results 24 hrs Laboratory Tests Test 11/04/16 14:50 11/05/16 05:54 11/05/16 06:00 Vitamin B12 Level 669 Folate 11.5 Rapid Plasma Reagin REACTIVE H RPR Titer Additional Testing 1:16 H HIV (1&2) Antibody NEGATIVE White Blood Count 4.5 L Red Blood Count 4.05 L Hemoglobin 11.6 L Hematocrit 35.4 L Mean Corpuscular Volume 87.4 Mean Corpuscular Hemoglobin 28.6 L Mean Corpuscular Hemoglobin Concent 32.8 Red Cell Distribution Width 14.7 H Platelet Count 106 #L Mean Platelet Volume 11.0 H Neutrophils % 41.6 Lymphocytes % 38.3 Monocytes % 13.5 H Eosinophils % 5.5 Basophils % 0.4 Nucleated Red Blood Cells % 0.0 Neutrophils # (Manual) 1.9 Lymphocytes # 1.7 Monocytes # 0.6 Eosinophils # 0.3 Basophils # 0.0 Nucleated Red Blood Cells # 0.0 Sodium Level 139 Potassium Level 4.6 Chloride Level 100 Carbon Dioxide Level 28 Anion Gap 16 Blood Urea Nitrogen 26 H Creatinine 1.08 Glucose Level 85 Calcium Level 8.8 Medications Medications Current Medications Aspirin (Halfprin) 81 mg DAILY PO Last administered on 11/05/16t 08:06; Admin Dose 81 MG; Start 10/31/16 at 09:00 Benazepril HCl (Lotensin) 10 mg BID PO Last administered on 11/04/16 22:14; Admin Dose 10 MG; Start 10/31/16 at 09:00 Bisacodyl (Dulcolax) 5 mg DAILY PRN PO CONSTIPATION; Start 10/30/16 at 23:30 Carvedilol (Coreg) 6.25 mg BID PO Last administered on 11/04/16 22:13; Admin Dose 6.25 MG; Start 10/31/16 at 09:00 Pantoprazole (Protonix Tab) 40 mg DAILY@06 PO Last administered on 11/05/16 06 :02; Admin Dose 40 MG; Start 10/31/16 at 06:00 Morphine Sulfate (morphine) 2 mg Q4H PRN IV PAIN Last administered on 10:27; Admin Dose 2 MG; Start 10/31/16 at 00:30 Enoxaparin Sodium (Lovenox) 30 mg DAILY SC ; Start 11/01/16 at 09:00 Tramadol HCl (Ultram) 50 mg Q4 PRN PO PAIN LEVEL 4-7; Start 10/31/16 at 20:30 Gabapentin (Neurontin) 100 mg BID PO Last administered on 11/05/16 08:06; Admin Dose 100 MG; Start 11/02/16 at 14:00 PATY DOMÍNGUEZ MD Nov 05, 2016 09:12
--- NOTE | 2016-11-05 11:01 | PN ---
Date/Time of Note Date/Time of Note DATE: 11/05/16 TIME: 10:56 Assessment/Plan VTE Prophylaxis VTE Prophylaxis Intervention: LMWH Lines/Catheters IV Catheter Type (from Nrsg): Peripheral IV Urinary Cath still in place: No Assessment/Plan Chief Complaint/Hosp Course Physical exam Gen: Awake,alert and oriented Neck supple +JVD CVS: LNIH Lungs:dec breath sounds at bases ext 1+edema A/P 61 y/o with 1.CHF exacerbation improving 2 RODERICK resolved 3 Cardiomyopathy with EF 20-25% possible ischemic based on last stress test 4 HTN 5 Peripheral Neuropathy 6 hx drug abuse 7 Smoker+ 8 + RPR 9 + hep B Reds - c/w ASA/statin/coreg/SARAH - c/w Lasix to 20 bid po - Angiogram likely on Friday> spoke to Dr Avina - Appreciate cards consult - HIV negative; +RPR lobo send FTA ab - Podiatry consult for severe peripheral neuropathy - GI/dvt prophylaxsis Problems: Subjective 24 Hr Interval Summary Free Text/Dictation Pt having severe pins and needles feeling in feet Net negative 1.4 L Exam/Review of Systems Vital Signs Vitals Vital Signs Date Time Temp Pulse Resp B/P Pulse Ox O2 Delivery O2 Flow Rate FiO2 11/05/16 08:53 62 11/05/16 07:05 97.9 18 91/54 97 11/02/16 20:00 Nasal Cannula 2.0 Intake and Output 11/04/16 11/04/16 11/05/16 15:00 23:00 07:00 Intake Total 720 ml 600 ml Output Total 2000 ml 800 ml Balance -1280 ml -200 ml Results Result Diagram: 11/05/16 0554 11/05/16 0600 Results 24 hrs Laboratory Tests Test 11/04/16 14:50 11/05/16 05:54 11/05/16 06:00 Vitamin B12 Level 669 Folate 11.5 Rapid Plasma Reagin REACTIVE H RPR Titer Additional Testing 1:16 H HIV (1&2) Antibody NEGATIVE White Blood Count 4.5 L Red Blood Count 4.05 L Hemoglobin 11.6 L Hematocrit 35.4 L Mean Corpuscular Volume 87.4 Mean Corpuscular Hemoglobin 28.6 L Mean Corpuscular Hemoglobin Concent 32.8 Red Cell Distribution Width 14.7 H Platelet Count 106 #L Mean Platelet Volume 11.0 H Neutrophils % 41.6 Lymphocytes % 38.3 Monocytes % 13.5 H Eosinophils % 5.5 Basophils % 0.4 Nucleated Red Blood Cells % 0.0 Neutrophils # (Manual) 1.9 Lymphocytes # 1.7 Monocytes # 0.6 Eosinophils # 0.3 Basophils # 0.0 Nucleated Red Blood Cells # 0.0 Sodium Level 139 Potassium Level 4.6 Chloride Level 100 Carbon Dioxide Level 28 Anion Gap 16 Blood Urea Nitrogen 26 H Creatinine 1.08 Glucose Level 85 Calcium Level 8.8 Medications Medications Current Medications Aspirin (Halfprin) 81 mg DAILY PO Last administered on 11/05/16 08:06; Admin Dose 81 MG; Start 10/31/16 at 09:00 Benazepril HCl (Lotensin) 10 mg BID PO Last administered on 11/04/16 22:14; Admin Dose 10 MG; Start 10/31/16 at 09:00 Bisacodyl (Dulcolax) 5 mg DAILY PRN PO CONSTIPATION; Start 10/30/16 at 23:30 Carvedilol (Coreg) 6.25 mg BID PO Last administered on 11/04/16 22:13; Admin Dose 6.25 MG; Start 10/31/16 at 09:00 Pantoprazole (Protonix Tab) 40 mg DAILY@06 PO Last administered on 11/05/16 06 :02; Admin Dose 40 MG; Start 10/31/16 at 06:00 Morphine Sulfate (morphine) 2 mg Q4H PRN IV PAIN Last administered on 10:27; Admin Dose 2 MG; Start 10/31/16 at 00:30 Enoxaparin Sodium (Lovenox) 30 mg DAILY SC ; Start 11/01/16 at 09:00 Tramadol HCl (Ultram) 50 mg Q4 PRN PO PAIN LEVEL 4-7; Start 10/31/16 at 20:30 Gabapentin (Neurontin) 100 mg BID PO Last administered on 11/05/16 08:06; Admin Dose 100 MG; Start 11/02/16 at 14:00 PAULINA SIMPSON MD Nov 05, 2016 11:01
[2016-11-06] VITALS (18 sets, daily range): BP systolic 116–132; BP diastolic 60–84; PULSE 61–72; RESP 14–18
[2016-11-06] MEDS: ALBUTEROL 18 GM INHALER INH SCH ×5 (01:00→17:38)
[2016-11-06] MEDS: ALENDRONATE 10 MG TAB PO SCH (06:15)
[2016-11-06] MEDS: FUROSEMIDE 20 MG TAB PO SCH ×2 (06:16→17:53)
[2016-11-06] MEDS: PANTOPRAZOLE (EC) 40 MG TAB PO SCH (06:16)
[2016-11-06] MEDS: ENOXAPARIN 30 MG/0.3 ML SYG SC SCH (07:42)
[2016-11-06 08:12] LABS: BASOPHILS % 0.6 % (0.0-2.0); EOSINOPHILS # 0.3 10^3/ul (0.0-0.5); EOSINOPHILS % 5.6 % (0.0-7.0); HEMATOCRIT 34.2 % (42.0-52.0); HEMOGLOBIN 11.2 g/dl (14.0-18.0); LYMPHOCYTES # 1.5 10^3/ul (0.8-2.9); LYMPHOCYTES % 32.5 % (15.0-51.0); MEAN CORPUSCULAR HEMOGLOBIN 28.2 pg (29.0-33.0); MEAN CORPUSCULAR HGB CONC 32.7 g/dl (32.0-37.0); MEAN CORPUSCULAR VOLUME 86.1 fl (82.0-101.0); MEAN PLATELET VOLUME 10.5 fl (7.4-10.4); MONOCYTE # 0.7 10^3/ul (0.3-0.9); MONOCYTES % 14.4 % (0.0-11.0); NEUTROPHILS % 46.3 % (39.0-77.0); PLATELET COUNT 102 10^3/UL (140-415); RED BLOOD COUNT 3.97 10^6/ul (4.70-6.10); RED CELL DISTRIBUTION WIDTH 14.5 % (11.5-14.5); WHITE BLOOD COUNT 4.7 10^3/ul (4.8-10.8)
[2016-11-06 08:35] LABS: INR 0.95; PROTIME 12.7 Sec (12.2-14.2)
[2016-11-06 08:52] LABS: CALCIUM 8.6 mg/dl (8.4-10.2); CREATININE 1.07 mg/dl (0.61-1.24); POTASSIUM 4.3 mmol/L (3.5-5.1)
[2016-11-06] MEDS: BENAZEPRIL 10 MG TAB PO SCH (09:00)
[2016-11-06] MEDS: GABAPENTIN 100 MG CAP PO SCH (09:00)
[2016-11-06] MEDS: ASPIRIN (EC) 81 MG TAB PO SCH (09:00)
[2016-11-06] MEDS ORDERED: NITROGLYCERIN (IC) 100 MCG/ML INJ ONE (09:51)
[2016-11-06] MEDS ORDERED: MIDAZOLAM 1 MG/ML 2 ML INJ ONE (09:51)
[2016-11-06] MEDS ORDERED: HEPARIN 1000 UNITS/ML 10 ML INJ ONE (09:51)
[2016-11-06] MEDS ORDERED: FENTAnyl 50 MCG/ML VIAL ONE (09:51)
[2016-11-06] MEDS ORDERED: VERAPAMIL 5 MG INJ ONE (09:51)
[2016-11-06] MEDS ORDERED: IODIXANOL LOCM 100 ML BTL ONE (09:51)
[2016-11-06] MEDS: morphine 2 MG INJ IV PRN (11:55)
--- NOTE | 2016-11-06 12:54 | CARRPT ---
DATE OF PROCEDURE: 11/06/2016 TYPE OF PROCEDURE: 1. Left heart catheterization. 2. Coronary angiography. 3. Left ventriculogram. 4. Moderate conscious sedation. ATTENDING PHYSICIAN: Booker Avina MD REFERRING PHYSICIAN: Juan Schroeder MD; Jose Cleveland MD INDICATION: Cardiomyopathy with severely depressed left ventricular ejection fraction and associated recurrent bouts of admission for congestive heart failure with positive stress test findings for anterior ischemia, high-risk markers for cardiovascular events. TYPE OF ANESTHESIA: Conscious and local. BRIEF HISTORY/HOSPITAL COURSE: Mr. Quick is a 61-year-old male with a history of hypertension, dyslipidemia, cardiomyopathy with severely depressed left ejection fraction, with recurrent bouts for decompensated congestive heart failure, twice in the last 2-3 weeks with positive stress test findings for anterior ischemia. Given these findings, patient has been referred for and presents today in order to undergo left heart catheterization, to assess for possibility of significant obstructive coronary disease related to his symptoms of shortness of breath, chest pain, congestive heart failure, positive stress test findings and recurrent admissions to the hospital. PROCEDURE: After informed consent was obtained, patient was brought to [facility] Cardiac catheterization lab where his right radial was prepped and draped in usual sterile fashion. Two percent lidocaine was instilled into the right radial area in order to achieve adequate local anesthesia. Using modified Seldinger technique, the radial artery was cannulated and a 6-Spanish JL 3.5 catheter was used to cannulate the left main coronary ostium. With contrast injection, multiple views of the left coronary arterial system were obtained. A JL 3.5 mm guidewire and a JR4 were used to cannulate the right coronary artery. With contrast injection, multiple views of the right coronary arterial system was obtained. JR 4 guidewire and 6-Spanish pigtail was passed down the ascending aorta into the left ventricle. Left ventricular end-diastolic pressure measured. Using power injector, 20 mL of contrast was injected through the catheter and pullback across the valve to assess for significant gradient, which there was not, and removed. Subsequently at this time, radial sheaths were removed and TR band was applied to complete the procedure. There were no complications. FINDINGS: 1. Coronary angiography. Left main 4.5 mm. No significant stenosis. Circumflex proximally is a 4 mm vessel and has no significant focal stenosis throughout its entirety. There is a subtotal proximal to mid branching obtuse marginals with the two most proximal branches being subcentimeter vessels, and there is a very sizeable mid branching approximately 3.5 mm with no focal stenosis. Two distal branching approximately 2 and 2.5 respectively, with no significant focal stenosis. Circulation AV groove free of significant focal stenosis. The LAD proximally is a 3.5 mm vessel and has an ostial 20 percent stenosis. The remainder of LAD is free of significant focal stenosis, goes around the apex. There are mid branching diagonals, two 2 mm vessels with no significant focal stenosis. The right coronary proximally is a 3.5 mm vessel. In its mid portion, it has a 20 percent stenosis. The remainder of right coronary artery is free of focal stenosis, dominant vessel, gives off a 2 mm PDA and a 2 mm posterolateral branch with no significant focal stenosis. 2. Left ventriculogram revealed a depressed left ventricular ejection fraction approximately 25 to 30 percent with anterior and lateral severe hypokinesis. Left ventricular end-diastolic pressure of 4 pre LV-gram, 5 post LV-gram. No significant aortic stenosis by gradient. One-plus mitral regurgitation. TOTAL FLUOROSCOPY TIME: 2.2 minutes. TOTAL CONTRAST: 66 mL. IMPRESSION: 1. Essentially normal coronary arteries with very mild nonobstructive coronary artery disease. 2. Severely depressed left ventricular ejection fraction with wall motion abnormalities as above. 3. Low normal left heart filling pressures. 4. No significant aortic stenosis by gradient. 5. One-plus mitral regurgitation. RECOMMENDATIONS: In light of procedure findings at this time, would: 1. Maximize medical management. 2. Aggressive risk factor reduction. 3. The patient will be readmitted to same day surgery center for post catheterization, continue managing presenting symptoms with probable discharge the following day. Dictated By: Lindsey Crowley /fnt/ec /Document#: [id number] CC: Juan Schroeder MD; Jose Cleveland MD;*End*
--- NOTE | 2016-11-06 13:38 | CONS ---
Date/Time of Note Date/Time of Note DATE: 11/06/16 TIME: 10:39 Assessment/Plan Assessment/Plan Chief Complaint/Hosp Course IMPRESSION: 1. Congestive heart failure exacerbation, systolic, acute on chronic.-improving volume status. Trop negative3 x 3 2. Cardiomyopathy with severely depressed left ventricular ejection fraction of approximately 25 percent. 3. Abnormal cardiac stress test with small anterior of focal ischemia by recent stress test. 4. Abnormal electrocardiogram with deep T-wave inversions across the anterior precordial leads. 5. Hypertension. 6. Shortness of breath secondary to number 1-improved 7. Neuropathy lower extremities. 8. Ongoing tobacco use. 9. History of illicit substance abuse. Recc: -Tele -serial ecg's -Continue current coreg/ACEI -Continue lasix PO -LHC today to rule out obstructive cad as etiology of CHF/cardiomyopathy Problems: Consultation Date/Type/Reason Admit Date/Time Nov 01, 2016 at 10:55 Initial Consult Date 10/31/2016 Type of Consultation: cardiology Reason for Consultation cardiomyopathy/CHF Referring Provider: PAULINA SIMPSON MD Exam/Review of Systems Vital Signs Vitals Vital Signs Date Time Temp Pulse Resp B/P Pulse Ox O2 Delivery O2 Flow Rate FiO2 11/06/16 08:26 61 11/06/16 07:26 98.5 17 120/74 98 11/02/16 20:00 Nasal Cannula 2.0 Intake and Output 11/05/16 11/05/16 11/06/16 15:00 23:00 07:00 Intake Total 800 ml Balance 800 ml Exam Review of Systems: CONSTITUTIONAL: No fevers, chills. PULMONARY: mild sob CARDIOVASCULAR: No chest pain GASTROINTESTINAL: No nausea/vomiting. GENITOURINARY: No hematuria/dysuria. MUSCULOSKELETAL: No myagias/arthalgias. PSYCHIATRIC: The patient denies depression. NEUROLOGIC: No weakness Constitutional: alert, oriented Psych: no complaints Head: normocephalic ENMT: mucosa pink and moist Neck: jvd (9 cm water), supple Respiratory: clear to auscultation Cardiovascular: regular rate and rhythm Gastrointestinal: non-tender, soft Musculoskeletal: muscle tone (normal) Extremities: edema (none) Neurological: other (No focal deficits) Results Result Diagram: 11/06/16 0703 11/06/16 0703 Results 24 hrs Laboratory Tests Test 11/06/16 07:03 White Blood Count 4.7 L Red Blood Count 3.97 L Hemoglobin 11.2 L Hematocrit 34.2 L Mean Corpuscular Volume 86.1 Mean Corpuscular Hemoglobin 28.2 L Mean Corpuscular Hemoglobin Concent 32.7 Red Cell Distribution Width 14.5 Platelet Count 102 L Mean Platelet Volume 10.5 H Neutrophils % 46.3 Lymphocytes % 32.5 Monocytes % 14.4 H Eosinophils % 5.6 Basophils % 0.6 Nucleated Red Blood Cells % 0.0 Neutrophils # (Manual) 2.2 Lymphocytes # 1.5 Monocytes # 0.7 Eosinophils # 0.3 Basophils # 0.0 Nucleated Red Blood Cells # 0.0 Prothrombin Time 12.7 Prothrombin Time Ratio 1.0 INR International Normalized Ratio 0.95 Sodium Level 141 Potassium Level 4.3 Chloride Level 104 Carbon Dioxide Level 26 Anion Gap 15 Blood Urea Nitrogen 23 H Creatinine 1.07 Glucose Level 89 Calcium Level 8.6 Medications Medications Current Medications Aspirin (Halfprin) 81 mg DAILY PO Last administered on 11/05/16 08:06; Admin Dose 81 MG; Start 10/31/16 at 09:00 Benazepril HCl (Lotensin) 10 mg BID PO Last administered on 11/04/16 22:14; Admin Dose 10 MG; Start 10/31/16 at 09:00 Bisacodyl (Dulcolax) 5 mg DAILY PRN PO CONSTIPATION; Start 10/30/16 at 23:30 Carvedilol (Coreg) 6.25 mg BID PO Last administered on 11/05/16 22:35; Admin Dose 6.25 MG; Start 10/31/16 at 09:00 Pantoprazole (Protonix Tab) 40 mg DAILY@06 PO Last administered on 11/06/16 06 :16; Admin Dose 40 MG; Start 10/31/16 at 06:00 Morphine Sulfate (morphine) 2 mg Q4H PRN IV PAIN Last administered on 10:27; Admin Dose 2 MG; Start 10/31/16 at 00:30 Enoxaparin Sodium (Lovenox) 30 mg DAILY SC ; Start 11/01/16 at 09:00 Tramadol HCl (Ultram) 50 mg Q4 PRN PO PAIN LEVEL 4-7; Start 10/31/16 at 20:30 Gabapentin (Neurontin) 100 mg BID PO Last administered on 11/05/16t 22:36; Admin Dose 100 MG; Start 11/02/16 at 14:00 MAYKEL SENA Nov 06, 2016 11:06
--- NOTE | 2016-11-06 13:41 | SIPON ---
Date/Time of Note Date/Time of Note DATE: 11/06/16 TIME: 13:38 Operative Report Preoperative Diagnosis 1. Chest pain 2.Cardiomyopathy 3.abnormal cardiac stress test with anterior ischemia Postoperative Diagnosis 1.No significant obstructive cad Operation/Procedure Performed 1.Left heart catheterization Surgeon: MAYKEL SENA Anesthesia Type: moderate sedation Estimated Blood Loss: minimal Transfusion Required: no Specimen: none Grafts/Implants: none Complications: no MAYKEL SENA Nov 06, 2016 13:41
--- NOTE | 2016-11-06 16:41 | PN ---
Date/Time of Note Date/Time of Note DATE: 11/06/16 TIME: 16:36 Assessment/Plan VTE Prophylaxis VTE Prophylaxis Intervention: SCD's Lines/Catheters IV Catheter Type (from Nrs): Peripheral IV Urinary Cath still in place: No Assessment/Plan Chief Complaint/Hosp Course Physical exam Gen: Awake,alert and oriented Neck supple CVS: LINH Lungs:dec breath sounds at bases ext 1+edema A/P 61 y/o with 1.CHF exacerbation improved 2 RODERICK resolved 3 Cardiomyopathy with EF 20-25% possible ischemic based on last stress test s/p angiogram which was negative 4 HTN 5 Peripheral Neuropathy ?? syphilis 6 hx drug abuse 7 Smoker+ 8 + RPR however pending FTA ab 9 + hep B Reds - c/w ASA/statin/coreg/SARAH - c/w Lasix to 20 bid po - Angiogram negative - +RPR spoke to patient about final testing of FTA ab confirmatory testing for syphilis and then can treat it howeever pt does not want to go until results are back. Spoke to lab FTA ab testing is sent out and will not be back until 5 days, explained to patient in detail and scheduled him with his PCP Dr Mendoza on Friday at 9.45 am for follow up. Case was explained with Dr Mendoza in detail - d/c home today with f/u Dr Mendoza on Nov 12 [address] Avina in 1 week Problems: Subjective 24 Hr Interval Summary Free Text/Dictation S/P Angiogram which was negative for any obstructive CAD Pt was informed about +RPR results 1:16 and told that we are waiting for FTA ab confirmatory testing Spoke to lab and final testing for FTA ab will not be back in 5 days as it is sent out Spoke to Dr Mendoza and explained to him about +rpr and waiting for FTA ab testing and he said that he will see him in office, scheduled appointment for him on November 12 9.45 am to follow up Exam/Review of Systems Vital Signs Vitals Vital Signs Date Time Temp Pulse Resp B/P Pulse Ox O2 Delivery O2 Flow Rate FiO2 11/06/16 16:06 61 11/06/16 15:26 98.1 18 130/67 98 11/06/16 12:55 Room Air 11/02/16 20:00 2.0 Intake and Output 11/05/16 11/05/16 11/06/16 15:00 23:00 07:00 Intake Total 800 ml Balance 800 ml Results Result Diagram: 11/06/16 0703 11/06/16 0703 Results 24 hrs Laboratory Tests Test 11/06/16 07:03 White Blood Count 4.7 L Red Blood Count 3.97 L Hemoglobin 11.2 L Hematocrit 34.2 L Mean Corpuscular Volume 86.1 Mean Corpuscular Hemoglobin 28.2 L Mean Corpuscular Hemoglobin Concent 32.7 Red Cell Distribution Width 14.5 Platelet Count 102 L Mean Platelet Volume 10.5 H Neutrophils % 46.3 Lymphocytes % 32.5 Monocytes % 14.4 H Eosinophils % 5.6 Basophils % 0.6 Nucleated Red Blood Cells % 0.0 Neutrophils # (Manual) 2.2 Lymphocytes # 1.5 Monocytes # 0.7 Eosinophils # 0.3 Basophils # 0.0 Nucleated Red Blood Cells # 0.0 Prothrombin Time 12.7 Prothrombin Time Ratio 1.0 INR International Normalized Ratio 0.95 Sodium Level 141 Potassium Level 4.3 Chloride Level 104 Carbon Dioxide Level 26 Anion Gap 15 Blood Urea Nitrogen 23 H Creatinine 1.07 Glucose Level 89 Calcium Level 8.6 Medications Medications Current Medications Aspirin (Halfprin) 81 mg DAILY PO Last administered on 11/05/16 08:06; Admin Dose 81 MG; Start 10/31/16 at 09:00 Benazepril HCl (Lotensin) 10 mg BID PO Last administered on 11/04/16 22:14; Admin Dose 10 MG; Start 10/31/16 at 09:00 Bisacodyl (Dulcolax) 5 mg DAILY PRN PO CONSTIPATION; Start 10/30/16 at 23:30 Carvedilol (Coreg) 6.25 mg BID PO Last administered on 11/05/16 22:35; Admin Dose 6.25 MG; Start 10/31/16 at 09:00 Pantoprazole (Protonix Tab) 40 mg DAILY@06 PO Last administered on 11/06/16 06 :16; Admin Dose 40 MG; Start 10/31/16 at 06:00 Morphine Sulfate (morphine) 2 mg Q4H PRN IV PAIN Last administered on 11:55; Admin Dose 2 MG; Start 10/31/16 at 00:30 Enoxaparin Sodium (Lovenox) 30 mg DAILY SC ; Start 11/01/16 at 09:00 Tramadol HCl (Ultram) 50 mg Q4 PRN PO PAIN LEVEL 4-7; Start 10/31/16 at 20:30 Gabapentin (Neurontin) 100 mg BID PO Last administered on 11/05/16t 22:36; Admin Dose 100 MG; Start 11/02/16 at 14:00 PAULINA SIMPSON MD Nov 06, 2016 16:41
--- NOTE | 2016-11-06 17:08 | PDOCDIS ---
Discharge Instructions DIAGNOSIS Discharge Diagnosis CHF exacerbation Non ischemic CM +RPR> follow up [facility] as outapatient CONDITION Patient Condition: Fair HOME CARE INSTRUCTIONS: Diet Instructions: Low Fat /Cholesterol ACTIVITY: Activity Restrictions: Avoid heavy lifting FOLLOW UP/APPOINTMENTS Follow-up Plan f/u Dr Mendoza on Nov 12 at 9.45 f/u Dr Avina in 1 week f/u Podiatry as outpatient in 2 weeks PAULINA SIMPSON MD Nov 06, 2016 17:08
[2016-11-06] MEDS ORDERED: ASPI-664 PO (17:16)
[2016-11-06] MEDS ORDERED: CARV6.2579 PO (17:16)
[2016-11-06] MEDS ORDERED: GABA100C14 PO (17:16)
[2016-11-06] MEDS ORDERED: BENA10TA48 PO (17:16)
[2016-11-06] MEDS ORDERED: LAS20 PO (17:16)
[2016-11-06 19:21] LABS: FLUORESCENT TREPONEMAL AB REACTIVE (NON-REACTIVE)
--- NOTE | 2016-11-07 07:02 | DS ---
DATE OF ADMISSION: 11/01/2016 DATE OF DISCHARGE: 11/06/2016 HOSPITAL COURSE: This is a 61-year-old male, who was just recently discharged in the hospital with a diagnosis of congestive heart failure, hypertensive disease, peripheral neuropathy, presented to the emergency department complaining of shortness of breath, leg edema. According to the patient, he had been taking Lasix 20 mg at home. On admission, vital signs were stable. Patient had a few rales on exam and also had positive for lower extremity edema. BNP was 2430, and patient also had serial troponins that were negative. Patient was seen, started on Lasix 20 mg IV b.i.d. Patient was seen by Dr. Avina for a cardiology consultation. The EKG revealed sinus rhythm with heart rate of 71. Patient was also continued on aspirin, statin, Coreg, and metoprolol was switched to Coreg and benazepril and was continued on benazepril. On admission, the creatinine was 1.66. The patient had gentle diuresis. Meloxicam was held. Eventually, patient was a feeling much better after diuresis. Patient was seen by Dr. Avina and had abnormal cardiac stress test last visit with small anterior focal ischemia by recent stress so was scheduled for an angiogram. Patient had an angiogram on 06 November that was negative for any obstructive coronary artery disease. During the course of the hospital, patient was also complaining of some peripheral neuropathy. Workup was sent. Patient with history of hepatitis B positive. Vitamin B12, folic acid, were negative. HIV was sent. That was negative. Patient had an RPR that came back positive 1:16. Spoke with the patient in great detail. Patient said that he never knew about syphilis and has never been treated for syphilis in the past. FTA antibody was sent; however, I spoke with the lab. It will take around 5 days for the labs to come back. I spoke to the patient in great detail and spoke with the patient's primary care doctor, Dr. Warner, about the positive RPR and FTA antibody pending, and the antibody testing results will come back in 5 days as it was a send out, and patient will be scheduled to see Dr. Warner as an outpatient on November 12 to follow up for his FTA antibody results. Patient was feeling much better, and breathing had improved, and the swelling had gone down and will be discharged on Lasix 20 mg p.o. b.i.d. FINAL DISCHARGE DIAGNOSES: 1. Congestive heart failure, systolic, acute on chronic, improved volume status. 2. Cardiomyopathy with severely depressed ejection fraction of 25 percent, nonischemic, status post coronary angiogram with nonobstructive coronary artery disease. 3. Hypertension. 4. Peripheral neuropathy of the lower extremities. 5. Tobacco use. 6. Illicit substance use. 7. History of hepatitis B. 8. Positive RPR, however, pending FTA antibody test. DISCHARGE INSTRUCTIONS: DISCHARGE MEDICATIONS: Aspirin 81 mg p.o. daily. Lasix 20 mg p.o. b.i.d. Gabapentin 100 mg p.o. b.i.d. Benazepril 10 mg p.o. b.i.d. Coreg 6.25 mg p.o. b.i.d. Fosamax 10. FOLLOWUP: Patient was instructed to follow up with Dr. Warner on November 12 at 9:45 a.m. Patient will follow up with Dr. Avina in about 1 week. DIET: Patient was instructed to have a low-fat diet. RETURN INSTRUCTIONS: Return to the ER if he has again shortness of breath, chest pain, lower extremity edema. Dictated By: MD MARICEL Ding/lei/kana /Document#: [id number]
== END 2016-11-06 18:40 | disposition home or self-care (01) | DRG 286 ==
LOC: E/R 13:58 → TEL 17:34 → OBSVTOIN 11-01 10:55 → TEL 11-01 20:10
PROVIDERS: ADMIT Internal Medicine Nephrology; ATTEND Internal Medicine Nephrology
PROC: B2011ZZ Plain Radiography of Multiple Coronary Arteries using Low Osmolar Contrast (ICD-10-PCS; 2016-11-06)
PROC: B2051ZZ Plain Radiography of Left Heart using Low Osmolar Contrast (ICD-10-PCS; 2016-11-06)
PROC: 4A023N7 Measurement of Cardiac Sampling and Pressure, Left Heart, Percutaneous Approach (ICD-10-PCS; principal; 2016-11-06 09:00)
DX: I13.0 Hypertensive heart and chronic kidney disease with heart failure and stage 1 through stage 4 chronic kidney disease, or unspecified chronic kidney disease (principal); I50.23 Acute on chronic systolic (congestive) heart failure; N17.9 Acute kidney failure, unspecified; I42.8 Other cardiomyopathies; B19.10 Unspecified viral hepatitis B without hepatic coma; G62.9 Polyneuropathy, unspecified; I25.10 Atherosclerotic heart disease of native coronary artery without angina pectoris; Z72.0 Tobacco use; N18.9 Chronic kidney disease, unspecified; D64.9 Anemia, unspecified; R76.0 Raised antibody titer
CPT/HCPCS: 36415; 71010; 80048; 80053; 80061; 80307; 82550; 82553; 82607; 82746; 83735; 83880; 84100; 84484; 85025; 85610; 85730; 86592; 86703; 87285; 93005; 93458; G0378; J1940; C1769; C1887; J1644; J1650; J2250; J2270; J3010; Q9967

== ENCOUNTER 2017-12-05 14:24 | Emergency (ER) | END 2017-12-05 17:38 | disposition home or self-care (01) ==